=== PATIENT | male | born 1955 | race Caucasian/White ===

== ENCOUNTER 2017-10-10 08:00 | Outpatient (RCR) | payer OTHER, SELFPAY ==
--- NOTE | 2017-07-20 09:12 | HP.PTEVAL_ITS ---
Patient's Visit Information CHEPE THURSTON is a 62 year old M referred to Physical Therapy by Agustin Martin with a diagnosis of R rot cuff repair and biceps repair. Date of Evaluation: 07/20/17 Physical Therapist: Ben Penn, PT, - Visit Plan Frequency: 3x /Week Duration: 2 Months Plan: R rot cuff protocal. 4 weeks of AAROM f/b strengthening of the rot cuff and scapular stab's. CP for pain - Subjective Subjective: DOS: 06/02/17. 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 Pt reports he had to fight with workers comp for several months, even though he had multiple witnesses who saw the injury occur. Pt reports he wore a sling up until last week. Pt reports he has been attempting to stretch his R shoulder out at home, but that is about it for a HEP. Pt reports he is still in a lot of pain at this time. Pt still has sleep diff secondary to pain at this time. Pt is R hand dom. No T or numbness at this time. Pt is currently off of work until 08/23/16. 0/10 pain at rest, 8/10 at worst (while sleeping). Pt notes he has not slept more than 2 hours at a time since the surgery. - Pain R shoulder Pain Intensity (Out of 10): 0 Pain Intensity Range: 8 - Objective Neuro: B UE sensation is WNL to light touch. B bicepital reflex= 1/3. Observation: Incisions fully healed. No obvious deformity. ROM: L shoulder flex = 170, abd= 170, ER= 70, IR WNL; R shoulder flex= 82, abd= 85, ER= 30, IR severely limited. MMT: L shoulder 5/5 throughout. R shoulder 3-/5 on this date - Goals Goal 1:: Decrease R shoulder pain x 50% to aid with sleep Goal Time Frame: 6-8 Weeks Goal 2:: Increase R shoulder ROM flex and abd x 50 degrees to aid with overhead activity Goal Time Frame: 6-8 Weeks Goal 3:: Increase R shoulder strength x 1 grade to aid with IADL's Goal Time Frame: 6-8 Weeks Goal 4:: I with HEP Goal Time Frame: 6-8 Weeks - Rehabilitation Potential Physical Therapy Diagnosis: R shoulder pain, weakness, and limited ROM secondary to R rot cuff and biceps repair Rehabilitation Potential: Good - Anticipated Interventions Patient/Client Instruction: Educate patient on: Condition, Plan of Care For the Purpose of:: To improve self management Therapeutic Exercise to Include: Strength training, Endurance training, Flexibilty training, Passive ROM, Active ROM, Scapular Strength/Stabilization For the Purpose of:: To decrease pain, To increase ROM, To improve muscle performance and motor function Cryotherapy (ice pack, ice massage): Yes For the Purpose of:: To decrease pain Thank you for the opportunity to evaluate your patient. For Medicare and Medicare HMO plans, please review the plan of care and approve it. It will need to be FAXED BACK to us at [phone] for Medicare purposes. Please let me know if there are questions or concerns regarding this plan of care. Physician Signature: Date:
--- NOTE | 2017-12-12 12:42 | HP.PT.NRP ---
HP - Discharge Summary (1) - Patient Information CHEPE THURSTON was seen in my office for initial evaluation on 07/20/17. The following Plan of Care was established for this patient: Initial Frequency: 3x /Week Initial Duration: 2 Months - Anticipated Interventions Patient/Client Instruction: Educate patient on: Condition, Plan of Care For the Purpose of:: To improve self management Therapeutic Exercise to Include: Strength training, Endurance training, Flexibilty training, Passive ROM, Active ROM, Scapular Strength/Stabilization For the Purpose of:: To decrease pain, To increase ROM, To improve muscle performance and motor function Cryotherapy (ice pack, ice massage): Yes For the Purpose of:: To decrease pain This patient was last seen in our office . Pertinent comments regarding their Physical therapy will appear below: Pt was last scheduled on 10/12/17 for PT. Pt cancelled that appointment and has not returned through todays date. Pt is discontinued at this time At this point I will be discontinuing this patient from physical therapy. I would be happy to see this patient again in the future if found appropriate by the physician. Thank you! Ben Penn, PT,
== END 2017-10-10 19:00 | disposition home or self-care (01) ==
LOC: PT 08:00
PROVIDERS: Family Provider Family Medicine; PCP Family Medicine; Visit Provider Orthopaedic Surgery
DX: S46.211D Strain of muscle, fascia and tendon of other parts of biceps, right arm, subsequent encounter (principal); S46.011D Strain of muscle(s) and tendon(s) of the rotator cuff of right shoulder, subsequent encounter
CPT/HCPCS: 97110; 97140; 97161

== ENCOUNTER 2018-02-06 17:00 | Outpatient (RCR) | payer OTHER, SELFPAY ==
--- NOTE | 2018-01-11 08:54 | HP.PTEVAL ---
Patient's Visit Information CHEPE THURSTON is a 62 year old M referred to Physical Therapy by Agustin Martin with a diagnosis of RC and biceps strain.RCR 06/02/18,. Date of Evaluation: 01/11/18 Physical Therapist: Oral Stanley, GHAZALAT, OC - Visit Plan Frequency: 3x /Week Duration: 4-6 Weeks Plan: 3x/week for 6 weeks for ... RC and scap and deltoid and bicep stregnthening with pulleys and dumbbells and weight bearing stabilization and progress to HEP. Also IR ROM. ice if needed. - Subjective Subjective: RCR 06/02/17 and reattach bicep muscle by doctor Bina. 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 Had PT after surgery for 12 weeks finishing up in November. 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 Pt continues to say how long he had to wait for surgery and therapy and ONLY got 12 weeks. Painful at times with lifting inside the joint. Went golfing yesterday, lasted 2-3 holes and then weakness kicks in and it gets tired. Pain is gone today but it still feels fatigued. Working still and is on 10# weight limit. Works at [employer]. 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 Basic ADLs are done but difficulty with lifting heavier objects. Reaching into cupboard is hard. He is R handed. Sleep is OK most of time. Doing TB exercises at home pulling on band daily with blue band. Doesn't feel like he is getting stronger. - Pain R shoulder Pain Intensity (Out of 10): 0 Pain Intensity Range: 0, 3 Comment: lifting. 05/24 after golf. - Objective Posture is forward head and slightly protracted scapula. AROM L shoulder WNL, R shoulder flexion to 150 and abduction to 150, 75 ext rot, IR to PSIS. C/S AROM WFL and without pain. reflexes 2/3 bi and tri. Full elbow AROM. Sensation WNL to gross light touch in UE. Strength thumb ext 5/5 B, wrist flex adn ext 5/5 B, bi 4/5 R and 5/5 L, triceps 4+ R and 5 L, shoulder flexion 4 R and 5 L, anduction 4 R and 5 L, ext rotation 4- R and 5 L, adn IR 4+ R and 5 L. Pain is not a large issue but long lever arm resisted flexion and abduction are slightly uncomfortable and subjectively sore when he gets weak. - Goals Goal 1:: I approp HEP to continue to challenge and strengthen R parker Goal Time Frame: 4-6 Weeks Goal 2:: 5/5 abd and flexion r UE without pain to help lift gallon [place] out of fridge. Goal Time Frame: 4-6 Weeks Goal 3:: Pt to be able to return to full duty at work without limitations. Goal Time Frame: 4-6 Weeks Goal 4:: Pt report a 90% improvement in strength and function in R UE Goal Time Frame: 4-6 Weeks Goal 5:: Plan to compete in [employer]. Goal Time Frame: 6-8 Weeks Goal 6:: Full UE IR to L4 to aid in belt and tucking in shirt. Goal Time Frame: 4-6 Weeks - Rehabilitation Potential Physical Therapy Diagnosis: Weakness after recent strain and surgery of R shoulder. Rehabilitation Potential: Fair - Anticipated Interventions Patient/Client Instruction: Educate patient on: Condition, Plan of Care For the Purpose of:: To improve muscle performance and motor function Therapeutic Exercise to Include: Strength training, Passive ROM, Active ROM, Scapular Strength/Stabilization For the Purpose of:: To improve muscle performance and motor function, To improve ability to perform ADL's, To increase tolerance to activity/condition/position Thank you for the opportunity to evaluate your patient. For Medicare and Medicare HMO plans, please review the plan of care and approve it. It will need to be FAXED BACK to us at [phone] for Medicare purposes. Please let me know if there are questions or concerns regarding this plan of care. Physician Signature: Date:
--- NOTE | 2018-02-17 08:45 | HP.PTDCSUM ---
HP - PT D/C Summary It has been my pleasure to treat CHEPE THURSTON under orders from Agustin Martin, for the diagnosis of RC and biceps strain.RCR 06/02/18, for a total of 10 visit(s). Discharge Date: Please see the following information for a summary of their discharge status. - Subjective Subjective: Pt no showed for today and last 5 visits. - Pain R shoulder Pain Intensity (Out of 10): 0 - Objective Objective/Function: No show for last couple weeks. was doing well prior to that slowly getting stronger. - Goals Goal 1:: I approp HEP to continue to challenge and strengthen R shoudler Goal Progress: initial ex Goal 2:: 5/5 abd and flexion r UE without pain to help lift gallon millk out of fridge. Goal Progress: unable to test Goal 3:: Pt to be able to return to full duty at work without limitations. Goal 4:: Pt report a 90% improvement in strength and function in R UE Goal 5:: Plan to compete in [employer] competition. Goal 6:: Full UE IR to L4 to aid in belt and tucking in shirt. - Plan Plan: D/C due to nonattendance. - D/C Information If there are questions or concerns regarding this patient's physical therapy, please feel free to call me at [phone]. Thank you for the referral of this patient. Sincerely, Oral Stanley, DPT, OC
== END 2018-02-06 19:00 | disposition home or self-care (01) ==
LOC: PT 17:00
PROVIDERS: Visit Provider Orthopaedic Surgery
DX: S46.211D Strain of muscle, fascia and tendon of other parts of biceps, right arm, subsequent encounter (principal); S46.011D Strain of muscle(s) and tendon(s) of the rotator cuff of right shoulder, subsequent encounter
CPT/HCPCS: 97110; 97162; 97530

== ENCOUNTER → 2018-04-11 15:51 | Outpatient (CLI) | payer OTHER, SELFPAY ==
[2018-04-11 16:50] LABS: Absolute Lymphocyte Count 1.52 X10^3/ul (0.83-4.51); Absolute Neutrophil Count 3.2 X10^3/uL (2.0-7.7); Basophil# 0.01 X10^3/uL; Basophil% 0.2 % (0-1); Eosinophil# 0.18 X10^3/uL; Eosinophils% 3.4 % (0-5); Hematocrit 42.5 % (40-54); Hemoglobin 14.6 g/dl (13.0-16.5); Lymphocyte # 1.52 X10^3/ul (4.0); Lymphocyte % 28.3 % (19-41); Mean Corp Hgb Conc 34.4 g/gl (32-36); Mean Corpuscular Hgb 29.9 pg (27.0-32.0); Mean Corpuscular Volume 87.1 fL (80-94); Mean Platelet Vol. 9.2 fl (6.2-12.0); Monocyte# 0.42 X10^3/uL; Monocyte% 7.8 % (0-10); Neutrophil # 3.23 X10^3/uL (2.7-7.7); Neutrophil % 60.1 % (47-70); Platelet Count 240 K/mm3 (150-450); RBC Distribution Width CV 13.1 % (11.6-14.6); RBC Distribution Width SD 41.7 fl (35.1-43.9); Red Blood Count 4.88 M/mm3 (4.6-6.2); White Blood Count 5.4 K/mm3 (4.4-11.0)
[2018-04-11 16:51] LABS: POSITIVE COUNT NO; POSITIVE DIFFERENTIAL NO; POSITIVE MORPHOLOGY NO
[2018-04-11 17:13] LABS: ALB/GLOB Ratio 1.1 RATIO (0.9-2.4); AST(SGOT) 27 U/L (15-37); Alanine Aminotransfer ALT/SGPT 65 U/L (16-61); Albumin, Serum 4.2 g/dL (3.2-5.0); Alkaline Phosphatase 92 U/L (45-117); Anion Gap 12 (5-15); BUN 18 mg/dL (7-18); BUN/Creat Ratio 14.2 RATIO (10-20); Calcium,Total 9.1 mg/dL (8.5-10.1); Chloride 106 mmol/L (98-107); Creatinine, Serum 1.27 mg/dL (0.70-1.30); EST Glomerular Filtration Rate 61 mL/min (>60); Est Glom Filt Rate - Afr Amer 74 mL/min (>60); Globulin 3.8 g/dL (2.2-4.2); Glucose 97 mg/dL (74-106); PSA,Total - Annual Screen 2.69 ng/mL (0.00-4.00); Potassium 4.1 mmol/L (3.5-5.1); Sodium Level 141 mmol/L (136-145); Thyroid Stim Hormone (TSH) 3.24 uIU/mL (0.358-3.74); Uric Acid 8.5 mg/dL (3.5-7.2)
[2018-04-14 11:50] LABS: Hep C Antibodies <0.1 s/co ratio (0.0-0.9)
== END ==
PROVIDERS: Visit Provider Family Medicine Geriatric Medicine
DX: Z00.00 Encounter for general adult medical examination without abnormal findings (principal); Z12.5 Encounter for screening for malignant neoplasm of prostate; Z13.89 Encounter for screening for other disorder; M10.9 Gout, unspecified
CPT/HCPCS: 36415; 80053; 84153; 84443; 84550; 85025; 86803; G0103

== ENCOUNTER → 2018-07-12 13:44 | Outpatient (CLI) | payer OTHER, SELFPAY ==
[2018-07-12 17:11] LABS: Absolute Lymphocyte Count 1.39 X10^3/ul (0.83-4.51); Absolute Neutrophil Count 4.2 X10^3/uL (2.0-7.7); Basophil# 0.01 X10^3/uL; Basophil% 0.2 % (0-1); Eosinophil# 0.14 X10^3/uL; Eosinophils% 2.3 % (0-5); Hematocrit 39.2 % (40-54); Hemoglobin 13.4 g/dl (13.0-16.5); Lymphocyte # 1.39 X10^3/ul (4.0); Lymphocyte % 22.6 % (19-41); Mean Corp Hgb Conc 34.2 g/gl (32-36); Mean Corpuscular Hgb 30.5 pg (27.0-32.0); Mean Corpuscular Volume 89.1 fL (80-94); Mean Platelet Vol. 9.9 fl (6.2-12.0); Monocyte# 0.42 X10^3/uL; Monocyte% 6.8 % (0-10); Neutrophil # 4.17 X10^3/uL (2.7-7.7); Neutrophil % 67.8 % (47-70); Platelet Count 256 K/mm3 (150-450); RBC Distribution Width CV 13.4 % (11.6-14.6); White Blood Count 6.2 K/mm3 (4.4-11.0)
[2018-07-12 17:33] LABS: POSITIVE COUNT NO; POSITIVE DIFFERENTIAL NO; POSITIVE MORPHOLOGY NO
[2018-07-12 18:03] LABS: ALB/GLOB Ratio 1.2 RATIO (0.9-2.4); AST(SGOT) 28 U/L (15-37); Alanine Aminotransfer ALT/SGPT 54 U/L (16-61); Albumin, Serum 4.1 g/dL (3.2-5.0); Alkaline Phosphatase 101 U/L (45-117); Anion Gap 10 (5-15); BUN 12 mg/dL (7-18); BUN/Creat Ratio 9.5 RATIO (10-20); Calcium,Total 9.1 mg/dL (8.5-10.1); Chloride 108 mmol/L (98-107); Creatinine, Serum 1.26 mg/dL (0.70-1.30); EST Glomerular Filtration Rate 62 mL/min (>60); Est Glom Filt Rate - Afr Amer 75 mL/min (>60); Globulin 3.5 g/dL (2.2-4.2); Glucose 101 mg/dL (74-106); Potassium 3.7 mmol/L (3.5-5.1); Protein, Total 7.6 g/dL (6.4-8.2); Sodium Level 145 mmol/L (136-145); Thyroid Stim Hormone (TSH) 3.64 uIU/mL (0.358-3.74); Uric Acid 4.9 mg/dL (3.5-7.2)
--- OUTSIDE RECORDS SUMMARY | 2018-09-06 23:13 | XMS RPT_ITS ---
:1955 Demographics Address [address] [place] [address] Pref[facility] Marital Status Unknown Latter Day Affiliation Unknown Race Ethnic Group Unknown Author Organization OHIP Care Team Providers Name Role Phone TOBIAS CEDENO Attending Unavailable Herber Pandya Primary Care Unavailable TOBIAS CEDENO Attending Unavailable TOBIAS CEDENO Referring Unavailable Primay Care Physicia, No Primary Care Unavailable Vinicio Franco Chi Attending Unavailable Vinicio Franco Chi Attending Unavailable PROBLEMS PROBLEMS DATE TYPE CONDITION / CODE ATTENDING STATUS SOURCE 04/04/2018 Unknown S46.211D - Strain TOBIAS CEDENO Active Turner of muscle, fascia Community and tendon of Hospital other parts of Repository biceps, right arm, subsequent encounter / S46.211D(ICD-10) PROCEDURES PROCEDURES No Procedure Records FoundRESULTS RESULTS CBC W/DIFF, AUTOMATED Collected: 07/12/2018 Status: F Source: [place] 1:48 PM [facility] REPOSITORY TYPE CODE TESTS RESULT OUT OF RANGE REFERENCE UNITS LAB L100.1000 4.4-11.0 K/mm3 Normal WBC 6.2 LAB L100.1200 4.6-6.2 M/mm3 Low RBC 4.40 LAB L100.1300 13.0-16.5 g/dl Normal HGB 13.4 LAB L100.1400 40-54 % Low HCT 39.2 LAB L100.1500 80-94 fL Normal MCV 89.1 LAB L100.1600 27.0-32.0 pg Normal MCH 30.5 LAB L100.1700 32-36 g/gl Normal MCHC 34.2 LAB L100.1810 11.6-14.6 % Normal RDW CV 13.4 LAB L100.1820 35.1-43.9 fl Normal RDW SD 43.0 LAB L100.1900 150-450 K/mm3 Normal PLT 256 LAB L100.2000 6.2-12.0 fl Normal MPV 9.9 LAB L100.2100 47-70 % Normal NEUT% 67.8 LAB L100.2200 19-41 % Normal LY% 22.6 LAB L100.2300 0-10 % Normal MONO% 6.8 LAB L100.2400 0-5 % Normal EO% 2.3 LAB L100.2500 0-1 % Normal BASO% 0.2 LAB L100.2550 0.0-0.9 % Normal IM GRAN % 0.300 Result Comment: IG% - Immature Granulocytes (promyelocytes, myelocytes and metamyelocytes) > 1% indicates that a LEFT SHIFT is Present. LAB L100.2620 2.0-7.7 X10 3/uL Normal Absolute Neut 4.2 LAB L100.2720 0.83-4.51 X10 3/ul Normal Absolute Lymph 1.39 Performed By: #### L100.0100 #### [facility] [address] [place], [address] COMPREHENSIVE METABOLIC Collected: 07/12/2018 Status: F Source: [facility] 1:48 PM [facility] REPOSITORY TYPE CODE TESTS RESULT OUT OF RANGE REFERENCE UNITS LAB L501.0100 74-106 mg/dL Normal GLU 101 Result Comment: Fasting Glucose result from 100 to 125 mg/dL suggests IMPAIRED HOMEOSTASIS per A.D.A. criteria. Please note revised GLUCOSE reference range effective 2017. LAB L501.1000 7-18 mg/dL Normal BUN 12 LAB L501.1100 0.70-1.30 mg/dL Normal CREAT,SERUM 1.26 Result Comment: The validity of the calculated GFR AND GFRAA in patients over 70 years has not been determined. Clinical correlation is essential. LAB L501.1110 >60 mL/min Normal EST GFR 62 Result Comment: Non- GFR Calc LAB L501.1115 >60 mL/min Normal EST GFR - AA 75 Result Comment: GFR Calc LAB L501.1300 10-20 RATIO Low BUN/CRE 9.5 LAB L501.1500 6.4-8.2 g/dL Normal T PROT 7.6 LAB L501.1800 3.2-5.0 g/dL Normal ALB 4.1 LAB L501.1950 2.2-4.2 g/dL Normal GLOB 3.5 LAB L501.2000 0.9-2.4 RATIO Normal A/G 1.2 LAB L501.2200 8.5-10.1 mg/dL Normal CA 9.1 LAB L501.4100 15-37 U/L Normal AST 28 LAB L501.4305 45-117 U/L Normal ALK P 101 LAB L501.4405 16-61 U/L Normal ALT 54 LAB L501.4600 0.20-1.00 mg/dL Normal T BILI 0.80 LAB L501.5300 136-145 mmol/L Normal NA 145 LAB L501.5600 3.5-5.1 mmol/L Normal K 3.7 LAB L501.5900 98-107 mmol/L High CL 108 LAB L501.6100 21.0-32.0 mmol/L Normal CO2 27.0 LAB L501.6200 5-15 Normal GAP 10 Performed By: #### L500.4050, L501.1400, L501.9520 #### [facility] [address] [place], [place], [address] URIC ACID Collected: 07/12/2018 Status: F Source: [place] 1:48 PM [facility] REPOSITORY TYPE CODE TESTS RESULT OUT OF RANGE REFERENCE UNITS LAB L501.1400 3.5-7.2 mg/dL Normal URIC 4.9 Result Comment: The drugs N-Acetylcysteine and Metamizole may falsely depress this assay. Performed By: #### L500.4050, L501.1400, L501.9520 #### [facility] [address] [place], [place], [address] THYROID STIM HORMONE Collected: 07/12/2018 Status: F Source: [place] ([facility]) 1:48 PM [facility] REPOSITORY TYPE CODE TESTS RESULT OUT OF RANGE REFERENCE UNITS LAB L501.9520 0.358-3.74 uIU/mL Normal TSH 3.64 Performed By: #### L500.4050, L501.1400, L501.9520 #### [facility] [address] [facility] [address] [place], [place], [address] CBC W/DIFF, AUTOMATED Collected: 04/11/2018 Status: F Source: [place] 3:52 PM [facility] REPOSITORY TYPE CODE TESTS RESULT OUT OF RANGE REFERENCE UNITS LAB L100.1000 4.4-11.0 K/mm3 Normal WBC 5.4 LAB L100.1200 4.6-6.2 M/mm3 Normal RBC 4.88 LAB L100.1300 13.0-16.5 g/dl Normal HGB 14.6 LAB L100.1400 40-54 % Normal HCT 42.5 LAB L100.1500 80-94 fL Normal MCV 87.1 LAB L100.1600 27.0-32.0 pg Normal MCH 29.9 LAB L100.1700 32-36 g/gl Normal MCHC 34.4 LAB L100.1810 11.6-14.6 % Normal RDW CV 13.1 LAB L100.1820 35.1-43.9 fl Normal RDW SD 41.7 LAB L100.1900 150-450 K/mm3 Normal PLT 240 LAB L100.2000 6.2-12.0 fl Normal MPV 9.2 LAB L100.2100 47-70 % Normal NEUT% 60.1 LAB L100.2200 19-41 % Normal LY% 28.3 LAB L100.2300 0-10 % Normal MONO% 7.8 LAB L100.2400 0-5 % Normal EO% 3.4 LAB L100.2500 0-1 % Normal BASO% 0.2 LAB L100.2550 0.0-0.9 % Normal IM GRAN % 0.200 Result Comment: IG% - Immature Granulocytes (promyelocytes, myelocytes and metamyelocytes) > 1% indicates that a LEFT SHIFT is Present. LAB L100.2620 2.0-7.7 X10 3/uL Normal Absolute Neut 3.2 LAB L100.2720 0.83-4.51 X10 3/ul Normal Absolute Lymph 1.52 Performed By: #### L100.0100 #### [facility] [address] [place], [address] COMPREHENSIVE METABOLIC Collected: 04/11/2018 Status: F [facility] REPOSITORY TYPE CODE TESTS RESULT OUT OF RANGE REFERENCE UNITS LAB L501.0100 74-106 mg/dL Normal GLU 97 Result Comment: Please note revised GLUCOSE reference range effective 2017. LAB L501.1000 7-18 mg/dL Normal BUN 18 LAB L501.1100 0.70-1.30 mg/dL Normal CREAT,SERUM 1.27 Result Comment: The validity of the calculated GFR AND GFRAA in patients over 70 years has not been determined. Clinical correlation is essential. LAB L501.1110 >60 mL/min Normal EST GFR 61 Result Comment: Non- GFR Calc LAB L501.1115 >60 mL/min Normal EST GFR - AA 74 Result Comment: GFR Calc LAB L501.1300 10-20 RATIO Normal BUN/CRE 14.2 LAB L501.1500 6.4-8.2 g/dL T Normal PROT 8.0 LAB L501.1800 3.2-5.0 g/dL Normal ALB 4.2 LAB L501.1950 2.2-4.2 g/dL Normal GLOB 3.8 LAB L501.2000 0.9-2.4 RATIO Normal A/G 1.1 LAB L501.2200 8.5-10.1 mg/dL CA Normal 9.1 LAB L501.4100 15-37 U/L Normal AST 27 LAB L501.4305 45-117 U/L Normal ALK P 92 LAB L501.4405 16-61 U/L High ALT 65 LAB L501.4600 0.20-1.00 mg/dL T Normal BILI 0.70 LAB L501.5300 136-145 mmol/L NA Normal 141 LAB L501.5600 3.5-5.1 mmol/L K Normal 4.1 LAB L501.5900 98-107 mmol/L CL Normal 106 LAB L501.6100 21.0-32.0 mmol/L Normal CO2 23.0 LAB L501.6200 5-15 Normal GAP 12 Performed By: #### L500.4050, L501.1400, L501.9520, L501.9910 #### [facility] [address] [facility] [place], [address] URIC ACID Collected: 04/11/2018 Status: F Source: [place] 3:52 PM [facility] REPOSITORY TYPE CODE TESTS RESULT OUT OF RANGE REFERENCE UNITS LAB L501.1400 3.5-7.2 mg/dL High URIC 8.5 Result Comment: The drugs N-Acetylcysteine and Metamizole may falsely depress this assay. Performed By: #### L500.4050, L501.1400, L501.9520, L501.9910 #### [facility] [address] [facility]. [place], [place], [address] THYROID STIM HORMONE Collected: 04/11/2018 Status: F Source: [place] ([facility]) 3:52 PM [facility] REPOSITORY TYPE CODE TESTS RESULT OUT OF RANGE REFERENCE UNITS LAB L501.9520 0.358-3.74 uIU/mL Normal TSH 3.24 Performed By: #### L500.4050, L501.1400, L501.9520, L501.9910 #### [facility] [address] [facility] [place], [address] PSA,TOTAL - ANNUAL Collected: 04/11/2018 Status: F Source: [place] SCREEN 3:52 PM [facility] REPOSITORY TYPE CODE TESTS RESULT OUT OF RANGE REFERENCE UNITS LAB L501.9910 0.00-4.00 ng/mL Normal PSA,TOT 2.69 SCREEN Result Comment: This test was performed using the TPSA assay method for the Leap chemistry system. Values obtained with different assay methods cannot be used interchangably. When changing PSA assays in the course of monitoring a patient, additional sequential testing should be carried out to confirm baseline values. Performed By: #### L500.4050, L501.1400, L501.9520, L501.9910 #### [facility] [address] [place], [address] HEPATITIS C ANTIBODIES Collected: 04/11/2018 Status: F Source: [place] 3:52 PM [facility] REPOSITORY TYPE CODE TESTS RESULT OUT OF RANGE REFERENCE UNITS LAB L3100.0650 0.0-0.9 s/co ratio Normal HEP C AB <0.1 Result Comment: Negative: < 0.8 Indeterminate: 0.8 - 0.9 Positive: > 0.9 The CDC recommends that a positive HCV antibody result be followed up with a HCV Nucleic Acid Amplification test (502127). Performed at: - [facility] [id number] Managing Consultant Clinical Professor: Ander Browne PhD, Phone: [phone] Performed By: #### L3100.0625 #### [facility] (refer to report for specific site) refer to report for address and phone number PT D/C SUMMARY (1) Observed: 02/17/2018 Status: F Source: [place] 8:46 AM [facility] REPOSITORY [facility] [address] [place] [address]. [address] [place], [place] [address] Fax REHABILITATION SERVICES DISCHARGE SUMMARY MR#: [id number] Acct: [id number] Name: ROLAN THURSTON Rep #: [id number] : 1955 63 From: Oral Stanley DPT, OCS, CSCS Referring DrMakenna: TOBIAS CEDENO Status: REG RCR Insurance: SELF INSURED [facility] OTHER SELF PAY INSURANCE HP - PT D/C Summary It has been my pleasure to treat ROLAN THURSTON under orders from Tobias Cedeno, for the diagnosis of RC and biceps strain.RCR 06/02/18, for a total of 10 visit(s). Discharge Date: Please see the following information for a summary of their discharge status. - Subjective Subjective: Pt no showed for today and last 5 visits. - Pain R shoulder Pain Intensity (Out of 10): 0 - Objective Objective/Function: No show for last couple weeks. was doing well prior to that slowly getting stronger. - Goals Goal 1:: I approp HEP to continue to challenge and strengthen R barbiler Goal Progress: initial ex Goal 2:: 5/5 abd and flexion r UE without pain to help lift ramesh cm out of fridge. Goal Progress: unable to test Goal 3:: Pt to be able to return to full duty at work without limitations. Goal 4:: Pt report a 90% improvement in strength and function in R UE Goal 5:: Plan to compete in [employer] competition. Goal 6:: Full UE IR to L4 to aid in belt and tucking in shirt. - Plan Plan: D/C due to nonattendance. - D/C Information If there are questions or concerns regarding this patient's physical therapy, please feel free to call me at [phone]. Thank you for the referral of this patient. Sincerely, Oral Stanley DPT, OC <Electronically signed by Oral Stanley DPT, LUIZ, CSCS> 02/17/18 0846 CC: No Primary Care Physician; TOBIAS CEDENO EBG Signed INITAL EVALUATION (1) Observed: 01/12/2018 Status: F Source: [place] - PT 6:22 PM [facility] REPOSITORY [facility] [address] [place] [address]. [address] [place] [address] Fax REHABILITATION SERVICES INITIAL EVALUATION MR#: [id number] Acct: [id number] Name: ROLAN THURSTON Rep #: [id number] : 1955 62 From: Oral Stanley DPT, OCS, CSCS Referring Dr.: TOBIAS CEDENO Status: REG RCR Insurance: SELF INSURED [facility] OTHER SELF PAY INSURANCE Patient's Visit Information ROLAN THURSTON is a 62 year old M referred to Physical Therapy by Tobias Cedeno with a diagnosis of RC and biceps strain.RCR 06/02/18,. Date of Evaluation: 01/11/18 Physical Therapist: Oral Stanley DPT, OC - Visit Plan Frequency: 3x /Week Duration: 4-6 Weeks Plan: 3x/week for 6 weeks for ... RC and scap and deltoid and bicep stregnthening with pulleys and dumbbells and weight bearing stabilization and progress to HEP. Also IR ROM. ice if needed. - Subjective Subjective: RCR 06/02/17 and reattach bicep muscle by doctor Bina. 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 Had PT after surgery for 12 weeks finishing up in November. 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 Pt continues to say how long he had to wait for surgery and therapy and ONLY got 12 weeks. Painful at times with lifting inside the joint. Went golfing yesterday, lasted 2-3 holes and then weakness kicks in and it gets tired. Pain is gone today but it still feels fatigued. Working still and is on 10# weight limit. Works at [employer]. 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 Basic ADLs are done but difficulty with lifting heavier objects. Reaching into cupboard is hard. He is R handed. Sleep is OK most of time. Doing TB exercises at home pulling on band daily with blue band. Doesn't feel like he is getting stronger. - Pain R shoulder Pain Intensity (Out of 10): 0 Pain Intensity Range: 0, 3 Comment: lifting. 05/24 after golf. - Objective Posture is forward head and slightly protracted scapula. AROM L shoulder WNL, R shoulder flexion to 150 and abduction to 150, 75 ext rot, IR to PSIS. C/S AROM WFL and without pain. reflexes 2/3 bi and tri. Full elbow AROM. Sensation WNL to gross light touch in UE. Strength thumb ext 5/5 B, wrist flex adn ext 5/5 B, bi 4/5 R and 5/5 L, triceps 4+ R and 5 L, shoulder flexion 4 R and 5 L, anduction 4 R and 5 L, ext rotation 4- R and 5 L, adn IR 4+ R and 5 L. Pain is not a large issue but long lever arm resisted flexion and abduction are slightly uncomfortable and subjectively sore when he gets weak. - Goals Goal 1:: I approp HEP to continue to challenge and strengthen R parker Goal Time Frame: 4-6 Weeks Goal 2:: 5/5 abd and flexion r UE without pain to help lift gallon millk out of fridge. Goal Time Frame: 4-6 Weeks Goal 3:: Pt to be able to return to full duty at work without limitations. Goal Time Frame: 4-6 Weeks Goal 4:: Pt report a 90% improvement in strength and function in R UE Goal Time Frame: 4-6 Weeks Goal 5:: Plan to compete in [employer]. Goal Time Frame: 6-8 Weeks Goal 6:: Full UE IR to L4 to aid in belt and tucking in shirt. Goal Time Frame: 4-6 Weeks - Rehabilitation Potential Physical Therapy Diagnosis: Weakness after recent strain and surgery of R shoulder. Rehabilitation Potential: Fair - Anticipated Interventions Patient/Client Instruction: Educate patient on: Condition, Plan of Care For the Purpose of:: To improve muscle performance and motor function Therapeutic Exercise to Include: Strength training, Passive ROM, Active ROM, Scapular Strength/Stabilization For the Purpose of:: To improve muscle performance and motor function, To improve ability to perform ADL's, To increase tolerance to activity/condition/position Thank you for the opportunity to evaluate your patient. For Medicare and Medicare HMO plans, please review the plan of care and approve it. It will need to be FAXED BACK to us at [phone] for Medicare purposes. Please let me know if there are questions or concerns regarding this plan of care. Physician Signature: Date: <Electronically signed by Oral Stanley DPT, OCS, CSCS> 01/12/18 1822 CC: No Primary Care Physician; TOBIAS CEDENO EBG Signed For Medicare only, by signing this I certify the plan of care. Physicians Signature Date ALLERGIES ALLERGIES No Allergies Records FoundENCOUNTERS ENCOUNTERS ADMIT/DISCHARGE ACCOUNT ADMITTING ENCOUNTER LOCATION SOURCE NUMBER CLASS 07/12/2018 [id number] Ambulatory Logan Logan 6 [facility] ing:POLAB3 Repository 04/11/2018 [id number] Ambulatory Turner Logan 0 [facility] ing:POLAB3 Repository 02/06/2018/ [id number] Ambulatory Turner Turner 8 6 [facility] ing:PT Repository 10/10/2017/ [id number] Ambulatory Turner Turner 8 3 [facility] ing:PT Repository PAYERS PAYERS ENCOUNTER GUARANTOR PAYER SUBSCRIBER SOURCE 07/12/2018 ROLAN Tompkins [id number] 1/2 [facility] [address] [id number] Number: Repository [id number]: 330 [id number] [phone] () Date:[id number] [facility] [id number] [place] [id number]: 07/12/2018 Secondary NOT GIVENUNK Logan Insurance:SELF PAY [facility] Number: Effective Repository Date:2018-07-12 04/11/2018 ROLAN Tompkins [id number] 1/2 [facility] [place] [id number] [id number] Number: Repository [id number]: 330 [id number] [phone] () Date:[id number] [facility] [address], [place] [address]QQ: 04/11/2018 Secondary NOT GIVENUNK Logan Insurance:SELF PAY [facility] Number: Effective Repository Date:2018-04-11 02/06/2018 Rolan Tompkins [id number] 1/2 Insurance:[facility]: [facility] Number: [id number], [place] [id number] Repository [address]Jah: (330) Date: [phone] () [place] [address]YV: 02/06/2018 Secondary NOT GIVENUNK Turner Insurance:SELF PAY [facility] Number: Effective Repository Date:2018-01-05 10/10/2017 Rolan Bautista Primary Rolan Tompkins [id number] 08/16 [facility] Number: [id number], [place] [id number] Repository [address]Rhe: (330) Date: [phone] () [place] [address]CV: 10/10/2017 Secondary NOT GIVENUNK Turner Insurance:SELF PAY [facility] Number: Effective Repository Date:2017-07-18
== END ==
PROVIDERS: Visit Provider Family Medicine Geriatric Medicine
DX: M10.9 Gout, unspecified (principal); R53.83 Other fatigue
CPT/HCPCS: 36415; 80053; 84443; 84550; 85025

== ENCOUNTER → 2018-11-02 14:04 | Outpatient (CLI) | payer OTHER, SELFPAY ==
[2018-11-02 17:10] LABS: Absolute Lymphocyte Count 1.69 X10^3/ul (0.83-4.51); Absolute Neutrophil Count 4.3 X10^3/uL (2.0-7.7); Basophil# 0.02 X10^3/uL; Basophil% 0.3 % (0-1); Eosinophil# 0.12 X10^3/uL; Eosinophils% 1.8 % (0-5); Hematocrit 43.2 % (40-54); Hemoglobin 14.4 g/dl (13.0-16.5); Lymphocyte # 1.69 X10^3/ul (4.0); Mean Corp Hgb Conc 33.3 g/gl (32-36); Mean Corpuscular Hgb 29.9 pg (27.0-32.0); Mean Corpuscular Volume 89.8 fL (80-94); Mean Platelet Vol. 9.8 fl (6.2-12.0); Monocyte# 0.61 X10^3/uL; Neutrophil # 4.28 X10^3/uL (2.7-7.7); Neutrophil % 63.3 % (47-70); Platelet Count 292 K/mm3 (150-450); RBC Distribution Width CV 13.7 % (11.6-14.6); RBC Distribution Width SD 44.4 fl (35.1-43.9); Red Blood Count 4.81 M/mm3 (4.6-6.2); White Blood Count 6.8 K/mm3 (4.4-11.0)
[2018-11-02 17:13] LABS: POSITIVE COUNT NO; POSITIVE DIFFERENTIAL NO; POSITIVE MORPHOLOGY NO
[2018-11-02 17:32] LABS: ALB/GLOB Ratio 1.2 RATIO (0.9-2.4); AST(SGOT) 21 U/L (15-37); Alanine Aminotransfer ALT/SGPT 68 U/L (16-61); Albumin, Serum 4.1 g/dL (3.2-5.0); Alkaline Phosphatase 90 U/L (45-117); Anion Gap 7 (5-15); BUN 20 mg/dL (7-18); BUN/Creat Ratio 16.7 RATIO (10-20); Calcium,Total 9.5 mg/dL (8.5-10.1); Chloride 108 mmol/L (98-107); EST Glomerular Filtration Rate 65 mL/min (>60); Est Glom Filt Rate - Afr Amer 79 mL/min (>60); Globulin 3.5 g/dL (2.2-4.2); Glucose 106 mg/dL (74-106); Potassium 4.8 mmol/L (3.5-5.1); Protein, Total 7.6 g/dL (6.4-8.2); Sodium Level 142 mmol/L (136-145); Thyroid Stim Hormone (TSH) 2.68 uIU/mL (0.358-3.74); Uric Acid 6.3 mg/dL (3.5-7.2)
== END ==
PROVIDERS: Visit Provider Family Medicine Geriatric Medicine
DX: M10.9 Gout, unspecified (principal); R53.83 Other fatigue
CPT/HCPCS: 36415; 80053; 84443; 84550; 85025

== ENCOUNTER → 2019-02-07 10:18 | Outpatient (CLI) | payer OTHER, SELFPAY ==
[2019-02-07 12:23] LABS: Absolute Lymphocyte Count 1.08 X10^3/ul (0.83-4.51); Absolute Neutrophil Count 3.5 X10^3/uL (2.0-7.7); Basophil# 0.01 X10^3/uL; Basophil% 0.2 % (0-1); Eosinophil# 0.12 X10^3/uL; Eosinophils% 2.3 % (0-5); Hemoglobin 14.1 g/dl (13.0-16.5); Lymphocyte # 1.08 X10^3/ul (4.0); Lymphocyte % 21.1 % (19-41); Mean Corp Hgb Conc 35.3 g/gl (32-36); Mean Corpuscular Hgb 30.4 pg (27.0-32.0); Mean Corpuscular Volume 86.2 fL (80-94); Mean Platelet Vol. 9.4 fl (6.2-12.0); Monocyte# 0.37 X10^3/uL; Monocyte% 7.2 % (0-10); Neutrophil # 3.52 X10^3/uL (2.7-7.7); Platelet Count 273 K/mm3 (150-450); RBC Distribution Width CV 12.8 % (11.6-14.6); RBC Distribution Width SD 39.2 fl (35.1-43.9); Red Blood Count 4.64 M/mm3 (4.6-6.2); White Blood Count 5.1 K/mm3 (4.4-11.0)
[2019-02-07 12:34] LABS: POSITIVE COUNT NO; POSITIVE DIFFERENTIAL NO; POSITIVE MORPHOLOGY NO
[2019-02-07 12:41] LABS: ALB/GLOB Ratio 1.1 RATIO (0.9-2.4); AST(SGOT) 22 U/L (15-37); Alanine Aminotransfer ALT/SGPT 47 U/L (16-61); Alkaline Phosphatase 118 U/L (45-117); Anion Gap 11 (5-15); BUN 13 mg/dL (7-18); BUN/Creat Ratio 9.8 RATIO (10-20); Calcium,Total 9.6 mg/dL (8.5-10.1); Chloride 106 mmol/L (98-107); Creatinine, Serum 1.32 mg/dL (0.70-1.30); EST Glomerular Filtration Rate 58 mL/min (>60); Est Glom Filt Rate - Afr Amer 71 mL/min (>60); Globulin 3.6 g/dL (2.2-4.2); Glucose 104 mg/dL (74-106); Potassium 4.2 mmol/L (3.5-5.1); Protein, Total 7.6 g/dL (6.4-8.2); Sodium Level 141 mmol/L (136-145); Thyroid Stim Hormone (TSH) 1.94 uIU/mL (0.358-3.74)
== END ==
PROVIDERS: Visit Provider Family Medicine Geriatric Medicine
DX: M10.9 Gout, unspecified (principal); R53.83 Other fatigue
CPT/HCPCS: 36415; 80053; 84443; 84550; 85025

== ENCOUNTER → 2019-04-12 08:32 | Outpatient (CLI) | payer OTHER, SELFPAY ==
[2019-04-12 12:16] LABS: Absolute Lymphocyte Count 1.23 X10^3/uL (0.83-4.51); Absolute Neutrophil Count 3.3 X10^3/uL (2.0-7.7); Basophil# 0.02 X10^3/uL; Basophil% 0.4 % (0-1); Eosinophil# 0.18 X10^3/uL; Eosinophils% 3.6 % (0-5); Hematocrit 42.6 % (40-54); Hemoglobin 14.2 g/dL (13.0-16.5); Lymphocyte # 1.23 X10^3/ul (4.0); Lymphocyte % 24.4 % (19-41); Mean Corp Hgb Conc 33.3 g/dL (32-36); Mean Corpuscular Hgb 29.5 pg (27.0-32.0); Mean Corpuscular Volume 88.4 fL (80-94); Mean Platelet Vol. 9.4 fl (6.2-12.0); Monocyte# 0.33 X10^3/uL; Monocyte% 6.5 % (0-10); NRBC Flagged by Analyzer 0 % (0-5); Neutrophil # 3.27 X10^3/uL (2.7-7.7); Neutrophil % 64.7 % (47-70); Platelet Count 259 K/mm3 (150-450); RBC Distribution Width CV 12.1 % (11.6-14.6); RBC Distribution Width SD 39.8 fl (35.1-43.9); Red Blood Count 4.82 M/mm3 (4.6-6.2); White Blood Count 5.1 K/mm3 (4.4-11.0)
[2019-04-12 12:35] LABS: ALB/GLOB Ratio 1.2 RATIO (0.9-2.4); AST(SGOT) 20 U/L (15-37); Alanine Aminotransfer ALT/SGPT 39 U/L (16-61); Albumin, Serum 4.3 g/dL (3.2-5.0); Alkaline Phosphatase 96 U/L (45-117); Anion Gap 7 (5-15); BUN 19 mg/dL (7-18); BUN/Creat Ratio 16.1 RATIO (10-20); Calcium,Total 9.3 mg/dL (8.5-10.1); Chloride 107 mmol/L (98-107); Creatinine, Serum 1.18 mg/dL (0.70-1.30); EST Glomerular Filtration Rate 66 mL/min (>60); Est Glom Filt Rate - Afr Amer 80 mL/min (>60); Globulin 3.7 g/dL (2.2-4.2); Glucose 96 mg/dL (74-106); PSA,Total - Annual Screen 2.12 ng/mL (0.00-4.00); Potassium 4.2 mmol/L (3.5-5.1); Sodium Level 141 mmol/L (136-145); Uric Acid 4.8 mg/dL (3.5-7.2)
== END ==
PROVIDERS: Family Provider Family Medicine Geriatric Medicine; PCP Family Medicine Geriatric Medicine; Visit Provider Family Medicine Geriatric Medicine
DX: M10.9 Gout, unspecified (principal); R53.83 Other fatigue; Z12.5 Encounter for screening for malignant neoplasm of prostate
CPT/HCPCS: 36415; 80053; 84153; 84443; 84550; 85025; G0103

== ENCOUNTER → 2019-12-31 09:58 | Outpatient (CLI) | payer OTHER, SELFPAY ==
[2019-12-31 09:35] VITALS: BMI 36.9
[2019-12-31 10:18] LABS: Absolute Lymphocyte Count 1.17 X10^3/uL (0.83-4.51); Basophil# 0.02 X10^3/uL; Basophil% 0.4 % (0-1); Eosinophil# 0.24 X10^3/uL; Eosinophils% 4.9 % (0-5); Hematocrit 41.4 % (40-54); Hemoglobin 14.2 g/dL (13.0-16.5); Lymphocyte # 1.17 X10^3/ul (4.0); Lymphocyte % 24.1 % (19-41); Mean Corp Hgb Conc 34.3 g/dL (32-36); Mean Corpuscular Hgb 30.2 pg (27.0-32.0); Mean Corpuscular Volume 88.1 fL (80-94); Mean Platelet Vol. 9.3 fl (6.2-12.0); Monocyte# 0.39 X10^3/uL; NRBC Flagged by Analyzer 0 % (0-5); Neutrophil # 3.03 X10^3/uL (2.7-7.7); Neutrophil % 62.4 % (47-70); Platelet Count 244 K/mm3 (150-450); RBC Distribution Width CV 12.7 % (11.6-14.6); RBC Distribution Width SD 40.2 fl (35.1-43.9); White Blood Count 4.9 K/mm3 (4.4-11.0)
[2019-12-31 10:41] LABS: ALB/GLOB Ratio 1.2 RATIO (0.9-2.4); AST(SGOT) 19 U/L (15-37); Alanine Aminotransfer ALT/SGPT 42 U/L (16-61); Albumin, Serum 4.2 g/dL (3.2-5.0); Alkaline Phosphatase 87 U/L (45-117); Anion Gap 3 (5-15); BUN 17 mg/dL (7-18); BUN/Creat Ratio 12.4 RATIO (10-20); Calcium,Total 9.5 mg/dL (8.5-10.1); Chloride 106 mmol/L (98-107); Creatinine, Serum 1.37 mg/dL (0.70-1.30); EST Glomerular Filtration Rate 56 mL/min (>60); Est Glom Filt Rate - Afr Amer 68 mL/min (>60); Globulin 3.4 g/dL (2.2-4.2); Glucose 140 mg/dL (74-106); Lipase 82 U/L (73-393); Potassium 3.9 mmol/L (3.5-5.1); Protein, Total 7.6 g/dL (6.4-8.2); Sodium Level 139 mmol/L (136-145)
== END ==
PROVIDERS: Referring Provider Surgery; Visit Provider Surgery
DX: R10.9 Unspecified abdominal pain (principal)
CPT/HCPCS: 36415; 80053; 83690; 85025

== ENCOUNTER 2020-01-12 01:33 | Observation (INO) | payer OTHER, SELFPAY ==
[2019-12-31 09:35] VITALS: BMI 36.9
[2020-01-12] VITALS (12 sets, daily range): BP systolic 107–143; BP diastolic 69–88; PULSE 55–72; RESP 10–16; TEMP 35.9–36.7; O2SAT 93–99; BMI 40.3; BMI 39.3
--- NOTE | 2020-01-12 01:52 | EKG12_ITS ---
Test Reason : CP Blood Pressure : / mmHG Vent. Rate : 067 BPM Atrial Rate : 067 BPM P-R Int : 150 ms QRS Dur : 088 ms QT Int : 390 ms P-R-T Axes : 020 012 005 degrees QTc Int : 412 ms Normal sinus rhythm Normal ECG Confirmed by MALU SHEPARD ([id number]), clinical editor FELTON BUCK ([id number]) on 01/14/2020 11:10:03 AM Referred By: RU Confirmed By:MALU SHEPARD
--- NOTE | 2020-01-12 01:55 | RAD_ITS ---
STUDY: X-RAY CHEST REASON FOR EXAM: Male, 64 years old. CHEST PAIN TECHNIQUE: Single AP portable view of the chest. COMPARISON: None. FINDINGS: There are superimposed monitor leads. There are areas of hyperinflation. There is no focal parenchymal abnormality. There is no demonstrated pleural abnormality. Normal size heart. Normal mediastinum and joy. Normal visualized pulmonary arteries. Normal visualized aortic arch and descending thoracic aorta. There are diffuse degenerative changes of the visualized thoracic spine. Normal visualized external ribs, clavicles, and shoulders. There is no demonstrated abnormality of the visualized soft tissue structures of the upper abdomen. RAD/Chest 1 View (Portable) IMPRESSION: Component of COPD. No pulmonary edema, congestive heart failure or confluent pneumonia. Electronically Signed: Cony Zabala MD at 2:30 EDT , Service support ,
[2020-01-12] MEDS: Aspirin 81 MG TAB.CHEW 324 MG PO (01:57)
[2020-01-12 02:02] LABS: Absolute Lymphocyte Count 1.56 X10^3/uL (0.83-4.51); Absolute Neutrophil Count 2.3 X10^3/uL (2.0-7.7); Basophil# 0.02 X10^3/uL; Basophil% 0.4 % (0-1); Eosinophils% 4.4 % (0-5); Hemoglobin 14.5 g/dL (13.0-16.5); Lymphocyte # 1.56 X10^3/ul (4.0); Lymphocyte % 34.4 % (19-41); Mean Corp Hgb Conc 34.5 g/dL (32-36); Mean Corpuscular Hgb 30.3 pg (27.0-32.0); Mean Corpuscular Volume 87.9 fL (80-94); Mean Platelet Vol. 9.3 fl (6.2-12.0); Monocyte# 0.43 X10^3/uL; Monocyte% 9.5 % (0-10); NRBC Flagged by Analyzer 0 % (0-5); Neutrophil # 2.31 X10^3/uL (2.7-7.7); Neutrophil % 51.1 % (47-70); Platelet Count 275 K/mm3 (150-450); RBC Distribution Width CV 12.9 % (11.6-14.6); RBC Distribution Width SD 41.5 fl (35.1-43.9); Red Blood Count 4.78 M/mm3 (4.6-6.2); White Blood Count 4.5 K/mm3 (4.4-11.0)
[2020-01-12] MEDS: Nitroglycerin SL (ED/IMG/CATH) 0.4 MG TABLET SUBLINGUAL ×3 (02:10→02:22)
--- NOTE | 2020-01-12 02:10 | ED.DCSUM_ITS ---
- ER Visit Summary Date of Service: 01/12/20 Chief Complaint: Chest pain] History of Present Illness: The patient is a 64 M [presents to the emergency department complaint of chest pain that started this evening around 11:30 PM. Patient states that he was at work sitting when he developed onset of pain ret rosternally that sharp stabbing. He denies any radiation of the pain. He had some mild nausea. He denies any shortness of breath. He has had pain in the past but he felt it was related to his ventral hernia for which she saw a surgeon recently. This pain however is different than that and feels like it is coming from behind the sternum. Patient has history of gout and history of depression. His mother of an FL at age 55. Patient states that he had a cardiac cath about 12 years ago that was unremarkable. Patient did travel to [place] in September. He has no history of PE or DVT. He denies recent illness such as fever or cough. He states he had bronchitis about 4 5 weeks ago.] Physical Examination: [HEENT-PERRLA, EOMI. Cranial nerves II through XII aaron ssly intact. TMs clear. Mucous membranes moist. No adenopathy. Cardiovascular-regular rate and rhythm without murmur or ectopy Lungs-clear to auscultation, chest wall stable without crepitus or subcu emphysema Abdomen-normoactive bowel sounds, soft, nontender, no rebound or rigidity, no peritoneal signs. Extremities-intact ?4, normal range of motion, normal pulses, atraumatic] Test Results: [EKG obtained arrival shows sinus rhythm with a ventricular rate of 67 bpm with no acute segment changes.] CBC with it was normal. Chemistries unremarkable. Lipase was normal. AST was slightly elevated at 70. Troponin was less than 0.015. D-dimer was normal at 0.38. Chest x-ray showed some hyperinflation and some features of COPD. Emergency Department Course and Treatment: [IV line established on arrival. Patient placed on radio intelligence operator. Patient was given 4 baby aspirin. Patient was given sublingual nitroglycerin x3 and his chest pain eventually resolved.] Treatment Plan: [Admit] Disposition: [Admit] Impression: [Chest pain-rule out acute coronary syndrome] This note was generated with [employer] software. It may contain incorrect words, spelling, and punctuation that were not noted in review of the chart prior to signing ED Disposition - Plan for ED Patient: Referrals: Care Physician,No Primary [Primary Care Provider] -
[2020-01-12] MEDS: 0.9% Normal Saline 1,000 ML 150 ML IV (02:13)
[2020-01-12 02:20] LABS: Anion Gap 7 (5-15); BUN 24 mg/dL (7-18); BUN/Creat Ratio 18.5 RATIO (10-20); Calcium,Total 9.2 mg/dL (8.5-10.1); Chloride 105 mmol/L (98-107); EST Glomerular Filtration Rate 59 mL/min (>60); Est Glom Filt Rate - Afr Amer 72 mL/min (>60); Estimated Creatinine Clearance 58.92 ml/min; Glucose 118 mg/dL (74-106); Lipase 95 U/L (73-393); Potassium 3.9 mmol/L (3.5-5.1); Sodium Level 140 mmol/L (136-145)
[2020-01-12 02:21] LABS: AST(SGOT) 70 U/L (15-37); Alanine Aminotransfer ALT/SGPT 54 U/L (16-61); Albumin, Serum 4.1 g/dL (3.2-5.0); Alkaline Phosphatase 87 U/L (45-117); Bilirubin, Direct < 0.05 mg/dL (0.00-0.30); Globulin 3.6 g/dL (2.2-4.2); Protein, Total 7.7 g/dL (6.4-8.2)
[2020-01-12 02:31] LABS: D-Dimer Quantitative (DVT/PE) 0.38 FEU/ug/m (0.27-0.49)
--- NOTE | 2020-01-12 03:15 | PCM.HP.STD ---
Problem List (1) Atypical chest pain Status: Acute (2) Diastasis recti Status: Chronic (3) Umbilical hernia without obstruction and without gangrene Status: Chronic History of Present Illness Date of Admission: 01/12/20 Chief Complaint: Chest pain The patient is a 64 year old M with no significant past medical history presented to the emergency room because of chest pain. 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 He did mention that he had upper abdominal pain which was attributed to ventral hernia and diastases of recti for which he sought Dr. May recently. But patient did mention that the pain is more higher and it is retrosternal at this time. He denied associated shortness of breath, dizziness, sweating, syncope or presyncope. In the emergency department, his vital signs were stable. His routine blood work was unremarkable. His EKG revealed normal sinus rhythm, normal ME interval, normal QRS, normal QTC, no acute segment changes. Troponin was negative. Chest x-ray showed no acute findings. LFT and lipase were unremarkable. He is being admitted for chest pain for evaluation. Past Medical History Past Medical History (Chronic Problems): Chronic Problems (Last Updated 12/31/19 @ 09:34 by Christa Mccormack) Diastasis recti (Chronic) Umbilical hernia without obstruction and without gangrene (Chronic) Medical History: Medical History (Last Updated 12/31/19 @ 09:34 by Christa Mccormack) Umbilical hernia without obstruction and without gangrene (Chronic) K42.9 Depression F32.9 Gout M10.9 Allergies No Known Allergies Allergy (Verified 01/12/20 01:42) Home Medications: Ambulatory Orders Medication Instructions Recorded NK 12/31/19 Surgical History: Surgical History (Last Reviewed 01/12/20 @ 03:[address] Larry Gentile MD) History of arthroplasty of left shoulder Z96.612 History of arthroplasty of right shoulder Z96.611 History of arthroscopy of right knee Z98.890 History of left elbow replacement Z96.622 History of mandibular surgery Z98.890 History of surgery on wrist Z98.890 Psychiatric History: No pertinent psych hx Lives: Spouse/ Significant Other Smoking Status: Never smoker Alcohol: None Drugs: None - *Family History Maternal Family History: Family History (Last Reviewed 01/12/20 @ 03:[address] Larry Gentile MD) Mother Heart disease Father Cancer History Items: Heart Disease - Mother at age 55 because of heart disease and congestive heart failure., - Paternal Family History: Family History (Last Reviewed 01/12/20 @ 03:[address] Larry Gentile MD) Mother Heart disease Father Cancer History Items: Cancer Review of Systems Constitutional: Denies: Anorexia, Chills, Fever, Weakness Eyes: Denies: Blurred vision, Double vision, Drainage, Redness HEENT: Denies: Difficulty Hearing, Ear Pain, Eye Pain, Nasal Congestion, Sore Throat Cardiovascular: Reports: Chest Pain. Denies: Chest Tightness, Edema, Heaviness, Light Headedness, Palpitations, Syncope Respiratory: Denies: Cough, Pleuritic Pain, Shortness of Breath, Sputum production, Wheezing Gastrointestinal: Reports: Abdominal Pain. Denies: Constipation, Diarrhea, Nausea, Vomiting Genitourinary: Denies: Dysuria, Frequency, Hematuria Musculoskeletal: Denies: Arm Pain, Back Pain, Foot Pain Skin: Denies: Dryness, Rash Neurological: Denies: Balance problems, Double vision, Change in Speech, Slurred speech, Confusion, Headaches, Incoordination, Numbness, Tingling Psychiatric: Denies: Anxiety, Depression Endocrine: Denies: Change in Body Habitus, Polydipsia, Polyuria VTE Information - Inpt Only VTE Present on Admission: No VTE Mechan Device Prophylaxis: None VTE Pharm Prophylaxis ordered?: Yes Patient Problems: Active and Suspected Problems (Last Updated 12/31/19 @ 09:34 by Christa Mccormack) Atypical chest pain (Acute) - Physical Exam Vitals/I&O's: Vital Signs Temp Pulse Resp BP Pulse Ox 96.6 F L 64 10 L 116/69 96 01/12/20 01:34 01/12/20 02:38 01/12/20 02:38 01/12/20 02:22 01/12/20 02:38 Oxygen Delivery Method Room Air Weight: 273 lb 2.444 oz Body Mass Index (BMI) 40.3 General: Alert, Oriented x3, Cooperative, No apparent distress HEENT: Atraumatic, PERRLA, EOMI, Normocephalic Oral: Moist Mucosa, No Gingival or Mucosal Lesions/ Ulcerations Neck: Supple, No JVD, Negative Carotid Bruits, Trachea Midline, Thyroid Normal Size and Texture Lungs: Clear to auscultation, Normal air movement, No rhonchi, No wheeze, No rales Cardiovascular: Regular rate, Regular Rhythm, Normal S1, Normal S2, PMI Normal Abdomen: Bowel Sounds Present, Soft, Non Tender, Non-Distended, Obese Extremities: No clubbing, No cyanosis, No edema Skin: No rashes, No breakdown Lymphatic: No Cervical, Supraclavicular, or Inguinal Adenopathy Neurological: Cranial nerves II-XII grossly intact, Motor Exam 5/5 strength throughout Psych/Mental Status: Normal Affect, Appropriate, Alert and oriented to time, place, person, mood and affect Laboratory Results 01/12/20 01:50: Total Bilirubin 0.80, Direct Bilirubin < 0.05, AST 70 H, ALT 54, Alkaline Phosphatase 87, Total Protein 7.7, Albumin 4.1, Globulin 3.6 01/12/20 01:50: WBC 4.5, RBC 4.78, Hgb 14.5, Hct 42.0, MCV 87.9, MCH 30.3, MCHC 34.5, RDW Std Deviation 41.5, RDW Coeff of [place]verto 12.9, Plt Count 275, MPV 9.3, Immature Gran % (Auto) 0.200, Neut % (Auto) 51.1, Lymph % (Auto) 34.4, [place] % (Auto) 9.5, Eos % (Auto) 4.4, Baso % (Auto) 0.4, Absolute Neuts (auto) 2.3, Absolute Lymphs (auto) 1.56, Nucleated RBC % 0 01/12/20 01:50: D-Dimer Quant (PE/DVT) Cancelled 01/12/20 01:50: Sodium 140, Potassium 3.9, Chloride 105, Carbon Dioxide 28.0, Anion Gap 7, BUN 24 H, Creatinine 1.30, Estim Creat Clear Calc 58.92, Est GFR (MDRD) Af Amer 72, Est GFR (MDRD) Non-Af 59 L, BUN/Creatinine Ratio 18.5, Glucose 118 H, Calcium 9.2, Troponin I < 0.015, Lipase 95 01/12/20 02:13: D-Dimer Quant (PE/DVT) 0.38 Clinical Impression(s) from Imaging Studies Chest X-Ray 01/12/20 01:55 IMPRESSION: Component of COPD. No pulmonary edema, congestive heart failure or confluent pneumonia. Electronically Signed: Cony Zabala MD at 2:30 EDT , Service support , Current Medications Sodium Chloride () 1,000 mls @ 150 mls/hr IV .[id number] LASHAE Last Admin: 01/12/20 02:13 Dose: 150 mls/hr Documented by: Assessment/Plan All Active Problems (Last Updated 12/31/19 @ 09:34 by Christa Mccormack) Atypical chest pain (Acute) This is a 64 years old male patient presented to the emergency room because of chest pain and he is being admitted for evaluation. #1 chest pain: Seemed to be atypical. Risk factors are age, obesity and family history of premature CAD. Mother at age 55 because of heart attack and congestive heart failure. Patient did have chronic upper abdominal pain and he was diagnosed with umbilical hernia and diastases recti by Dr. Horace May but today, patient stated that the pain is higher up and more towards the abdomen. He is scheduled to have CT scan abdomen and pelvis as outpatient. Initial EKG and troponin I were unremarkable. Chest x-ray showed no acute findings. Plan: Admit to PCU observation, cardiac monitoring, serial cardiac enzymes, nitroglycerin PRN for pain, start baby aspirin, lipid profile, trial of Mylanta and Pepcid twice daily, nuclear stress test this morning if cardiac enzymes are negative, gentle IV fluids for hydration. #2 upper abdominal pain/recent diagnosis of umbilical hernia and diastases recti: Recommend follow-up with Dr. Horace May as outpatient, CT scan abdomen pelvis scheduled as outpatient. LFT and lipase were normal. #3 DVT prophylaxis: Subcu Lovenox. This note was generated with [employer] software. It may contain incorrect words, spelling, and punctuation that were not noted in checking the note before signing. OBSV E&M: 25213 Initial observation care L2
--- NOTE | 2020-01-12 03:43 | EKG12_ITS ---
Test Reason : CP ADMISSION Blood Pressure : / mmHG Vent. Rate : 052 BPM Atrial Rate : 052 BPM P-R Int : 146 ms QRS Dur : 086 ms QT Int : 422 ms P-R-T Axes : 055 025 012 degrees QTc Int : 392 ms Sinus bradycardia Otherwise normal ECG When compared with ECG of 12-JAN-2020 01:36, MANUAL COMPARISON REQUIRED, DATA IS UNCONFIRMED Confirmed by NANCY CAAL, MELIDA ([id number]), manager editorial SAVANNA SMILEY ([id number]) on 01/15/2020 1:49:40 PM Referred By: SAMY Confirmed By:MELIDA CRUZ MD
[2020-01-12] MEDS: 0.9% Normal Saline 1,000 ML 75 ML IV (04:15)
[2020-01-12] MEDS: 0.9% Saline Lock 10 ML Syringe IV (06:28)
[2020-01-12] MEDS: Aspirin 81 MG TAB.CHEW PO (06:29)
--- NOTE | 2020-01-12 07:01 | STEWCON_ITS ---
Reason For Study: CHEST PAIN Stress Results Protocol: Jamel Protocol WITH DEFINITY Maximum Predicted HR: 158 bpm Target HR: 134 bpm % Maximum Predicted HR: 86 % DurationHeart Rate Stage (mm:ss) (bpm) BP Comment BASELINE 60 132/785 CC TOTAL FOR TEST STAGE 1 3:00 96 140/80 STAGE 2 3:00 115 170/82 STAGE 3 1:31 136 / RECOVERY 82 130/80 Stress Duration: 7:31 mm:ss Maximum Stress HR: 136 bpm Baseline Echocardiogram Findings The estimated ejection fraction is 65 %. Stress Echo Wall motion Data Resting WM Intermediate WM Stress WM Resting Wall Motion Wall Motion Stress No regional wall motion No regional wall motion abnormalities noted. abnormalities noted. EKG Data The baseline ECG displays normal sinus rhythm. The patient exercised according to the regular Jamel protocol for a total duration of 8:31. The maximum heart rate attained was 137 beats per minute. This was 86% of maximum predicted heart rate. The patient exercised into stage 3 of the Jamel protocol. During stress, there were no ST or T wave changes noted to suggest ischemia. No clinical angina was noted. Interpretation Summary The estimated ejection fraction is 65 %. Normal, adequate, treadmill echocardiogram. Negative for ischemia by EKG and echocardiographic criteria. No anginal symptoms noted. No arrhythmias noted. Test terminated the attainment target heart rate and right knee discomfort. Final LVEF is 75%. Decrease sensitivity due to poor echo windows requiring Definity agent. No complications. The study was technically difficult. Contrast injection was performed. Ordering Physician: Larry Gentile Performed By: Cassy Padron, OSKAR, RVT
[2020-01-12 07:04] LABS: Cholesterol 229 mg/dL (200); High Density Lipoprotein 38 mg/dL; Triglycerides 176 mg/dL; Very Low Density Lipoprotein 35 mg/dL (5-40)
--- NOTE | 2020-01-12 09:54 | DCINST_ITS ---
- Discharge Diagnoses Current Active Problems: Current Active and Chronic Problems (Last Updated 01/12/20 @ 03:[address] Larry Gentile MD) Atypical chest pain (Acute) Diastasis recti (Chronic) You will use the following diet at home:: Cardiac Your food should be the consistency of: Regular Your liquids should be the consistency of: Regular/Thin Discharge Activity: Return to Normal Activity Allergies/Adverse Reactions: Allergies No Known Allergies Allergy (Verified 01/12/20 01:42) Medications to take at Discharge Acetaminophen [Tylenol Tablet] 650 mg PO Q6H PRN PRN tab 01/12/20 Primary Care Physician: Care Physician,No Primary [Primary Care Provider] - Please follow up with your Primary Care Physician in: 1-2 weeks Test Results: Test results from this visit will be discussed in further detail at your follow- up appointment, if applicable. Please Follow Up With: Horace May MD When: as directed Proposed Discharge Date: 01/12/20
--- NOTE | 2020-01-12 15:37 | PCM.DC.SUM ---
<Van Alberto - Last Filed: 01/12/20 15:37> Discharge Date and Diagnosis Date of Admission: 01/12/20 Date of Discharge: 01/12/20 - Primary Discharge Diagnosis Acute Problems: Chest pain - musculoskeletal Diastesis recti Umbilical hernia Obesity - Secondary Discharge Diagnosis Chronic Problems: Chronic Problems (Last Updated 01/12/20 @ 03:[address] Larry Gentile MD) Diastasis recti (Chronic) Umbilical hernia without obstruction and without gangrene (Chronic) Hospital Course and Treatment Imaging Results: 01/12/20 07:01 Stress Test Echo W/Contrast [ECHO] Routine Interpretation Summary The estimated ejection fraction is 65 %. Normal, adequate, treadmill echocardiogram. Negative for ischemia by EKG and echocardiographic criteria. No anginal symptoms noted. No arrhythmias noted. Test terminated the attainment target heart rate and right knee discomfort. Final LVEF is 75%. Decrease sensitivity due to poor echo windows requiring Definity agent. No complications. The study was technically difficult. Contrast injection was performed. RAD/Chest 1 View (Portable) IMPRESSION: Component of COPD. No pulmonary edema, congestive heart failure or confluent pneumonia. Operations: None Procedures: Stress test Summary of Care Provided: Hospital Course: The patient is a 64 year old M with pmhx as above who presented to the ER with c/o chest pain. He described this as a retrosternal pain started when he was sitting, 4-8/10 in severity, with no radiation or aggravating or alleviating factors. He reported that he had actually had similar pains for several years and had in the past had relief with icing the area on his chest. Also of note he is currently being evaluated by Dr. May (gen surg) for umbilical hernia. He had negative EKG, negative CXR, and negative troponin. He was admitted for chest pain work up. He had no events on tele. troponin was neg x 3. Stress test the following morning was negative. He was felt to have musculoskeletal pain and was discharged home in stable condition. He should follow up with his PCP in 1-2 weeks and with his surgeon regarding his hernia as directed. This patient was seen by Van Alberto PA-C under the supervision of Dr. Aguilar. [] - Physical Exam Vitals/I&O's: Vital Signs Temp Pulse Resp BP Pulse Ox 97.9 F 60 16 130/71 H 99 01/12/20 10:20 01/12/20 10:20 01/12/20 10:20 01/12/20 10:20 01/12/20 10:20 Oxygen Delivery Method Room Air Weight: 266 lb 5.094 oz Body Mass Index (BMI) 39.3 Intake and Output for Last 24 Hours 01/10/20 01/11/20 01/12/20 23:59 23:59 23:59 Intake Total 502.5 / 502.5 Balance 502.5 / 502.5 General: Alert, Oriented x3, Cooperative HEENT: Atraumatic, PERRLA, EOMI, Normocephalic Neck: Supple, No JVD, Negative Carotid Bruits Lungs: Clear to auscultation, Normal air movement Cardiovascular: Regular rate, No murmurs Abdomen: Bowel Sounds Present, Soft, Non Tender Extremities: No edema, Capillary Refill Less than 3 Seconds Skin: No rashes, No breakdown Musculoskeletal: No Tenderness to Palpation of Joints or Extremities Neurological: Cranial nerves II-XII grossly intact Psych/Mental Status: Normal Affect, Appropriate, Alert and oriented to time, place, person, mood and affect Laboratory Results 01/12/20 01:50: Total Bilirubin 0.80, Direct Bilirubin < 0.05, AST 70 H, ALT 54, Alkaline Phosphatase 87, Total Protein 7.7, Albumin 4.1, Globulin 3.6 01/12/20 01:50: WBC 4.5, RBC 4.78, Hgb 14.5, Hct 42.0, MCV 87.9, MCH 30.3, MCHC 34.5, RDW Std Deviation 41.5, RDW Coeff of [place]ver[place] 12.9, Plt Count 275, MPV 9.3, Immature Gran % (Auto) 0.200, Neut % (Auto) 51.1, Lymph % (Auto) 34.4, [place] % (Auto) 9.5, Eos % (Auto) 4.4, Baso % (Auto) 0.4, Absolute Neuts (auto) 2.3, Absolute Lymphs (auto) 1.56, Nucleated RBC % 0 01/12/20 01:50: D-Dimer Quant (PE/DVT) Cancelled 01/12/20 01:50: Sodium 140, Potassium 3.9, Chloride 105, Carbon Dioxide 28.0, Anion Gap 7, BUN 24 H, Creatinine 1.30, Estim Creat Clear Calc 58.92, Est GFR (MDRD) Af Amer 72, Est GFR (MDRD) Non-Af 59 L, BUN/Creatinine Ratio 18.5, Glucose 118 H, Calcium 9.2, Troponin I < 0.015, Lipase 95 01/12/20 02:13: D-Dimer Quant (PE/DVT) 0.38 01/12/20 05:07: Triglycerides 176, Cholesterol 229 H, LDL Cholesterol 156 H, VLDL Cholesterol 35, HDL Cholesterol 38 L 01/12/20 05:07: Troponin I < 0.015 01/12/20 08:50: Troponin I < 0.015 Discharge Diet: Low fat/ Low Cholesterol, 2000 mg Sodium Diet Discharge Activity: Return to Normal Activity Home Medications: Medications to take at Discharge Acetaminophen [Tylenol Tablet] 650 mg PO Q6H PRN PRN tab 01/12/20 Primary Care Physician: Care Physician,No Primary [Primary Care Provider] - Please follow up with your Primary Care Physician in: 1-2 weeks Please Follow Up With: Horace May MD When: as directed Disposition: Home Minutes spent on discharge:: 35 Patient Condition:: Stable Medical Necessity - Tobacco Use Smoking Status: Never smoker Meaningful Use Info Meaningful Use Diagnoses (Choose all that apply): None applicable <Robinson Aguilar - Last Filed: 01/12/20 16:01> Discharge Date and Diagnosis - Secondary Discharge Diagnosis Chronic Problems: Chronic Problems (Last Updated 01/12/20 @ 03:[address] Larry Gentile MD) Diastasis recti (Chronic) Umbilical hernia without obstruction and without gangrene (Chronic) Hospital Course and Treatment Imaging Results: 01/12/20 07:01 Stress Test Echo W/Contrast [ECHO] Routine Summary of Care Provided: The patient is a 64 year old M [] - Physical Exam Vitals/I&O's: Vital Signs Temp Pulse Resp BP Pulse Ox 97.9 F 60 16 130/71 H 99 01/12/20 10:20 01/12/20 10:20 01/12/20 10:20 01/12/20 10:20 01/12/20 10:20 Oxygen Delivery Method Room Air Weight: 266 lb 5.094 oz Body Mass Index (BMI) 39.3 Intake and Output for Last 24 Hours 01/10/20 01/11/20 01/12/20 23:59 23:59 23:59 Intake Total 502.5 / 502.5 Balance 502.5 / 502.5 Laboratory Results 01/12/20 01:50: Total Bilirubin 0.80, Direct Bilirubin < 0.05, AST 70 H, ALT 54, Alkaline Phosphatase 87, Total Protein 7.7, Albumin 4.1, Globulin 3.6 01/12/20 01:50: WBC 4.5, RBC 4.78, Hgb 14.5, Hct 42.0, MCV 87.9, MCH 30.3, MCHC 34.5, RDW Std Deviation 41.5, RDW Coeff of [place]ver[place] 12.9, Plt Count 275, MPV 9.3, Immature Gran % (Auto) 0.200, Neut % (Auto) 51.1, Lymph % (Auto) 34.4, [place] % (Auto) 9.5, Eos % (Auto) 4.4, Baso % (Auto) 0.4, Absolute Neuts (auto) 2.3, Absolute Lymphs (auto) 1.56, Nucleated RBC % 0 01/12/20 01:50: D-Dimer Quant (PE/DVT) Cancelled 01/12/20 01:50: Sodium 140, Potassium 3.9, Chloride 105, Carbon Dioxide 28.0, Anion Gap 7, BUN 24 H, Creatinine 1.30, Estim Creat Clear Calc 58.92, Est GFR (MDRD) Af Amer 72, Est GFR (MDRD) Non-Af 59 L, BUN/Creatinine Ratio 18.5, Glucose 118 H, Calcium 9.2, Troponin I < 0.015, Lipase 95 01/12/20 02:13: D-Dimer Quant (PE/DVT) 0.38 01/12/20 05:07: Triglycerides 176, Cholesterol 229 H, LDL Cholesterol 156 H, VLDL Cholesterol 35, HDL Cholesterol 38 L 01/12/20 05:07: Troponin I < 0.015 01/12/20 08:50: Troponin I < 0.015 Addendum: Dr. Aguilar I personally examined the patient and reviewed the chart. I agree with the above. 64-year-old male with morbid obesity presents with chest pain is atypical in presentation. He has been having this chest pain now for several months and he presented because it moved from his upper abdomen to his sternum. Troponins were negative, his EKG was nonischemic. He had a stress echo this morning which was unremarkable. He was discharged home with outpatient follow-up as well as a discussion in terms of lifestyle modifications for his obesity. OBSV E&M: [id number] Observation care discharge
== END 2020-01-12 09:54 | disposition home or self-care (01) ==
LOC: ED 02:25 → PCU 04:23
PROVIDERS: Admitting Provider Hospitalist; Emergency Provider Emergency Medicine; Visit Provider Family Medicine
DX: R07.89 Other chest pain (principal); E66.9 Obesity, unspecified; Z68.39 Body mass index [BMI] 39.0-39.9, adult; M62.08 Separation of muscle (nontraumatic), other site; R11.0 Nausea; K43.9 Ventral hernia without obstruction or gangrene; Z82.49 Family history of ischemic heart disease and other diseases of the circulatory system
CPT/HCPCS: 36415; 71045; 80048; 80061; 80076; 83690; 84484; 85025; 85379; 93005; 93017; 93350; 96360; 96361; 99218; 99285; J7030; Q9957; A4216; C8928; G0378

== ENCOUNTER → 2020-01-17 08:13 | Outpatient (CLI) | payer OTHER, SELFPAY ==
[2019-12-31 09:35] VITALS: BMI 36.9
[2020-01-12 03:39] VITALS: BMI 39.3
--- NOTE | 2020-01-17 08:14 | CT_ITS ---
STUDY: CT ABDOMEN AND PELVIS WITH CONTRAST REASON FOR EXAM: Male, 64 years old. MID STERNAL PAIN/EPIGASTRIC PAIN RADIATION DOSAGE (If Supplied By Facility): CTDIvol = ( 21.75 ) mGy, DLP = ( 1145.81 ) mGycm TECHNIQUE: Transaxial images were obtained from the dome of the diaphragm to the symphysis pubis with oral contrast. Oral and amp; IV Readi-CAT and amp; 100mL Isovue-300 was administered. Sagittal and coronal images were reconstructed. Individualized dose optimization techniques were used for this CT. COMPARISON: None. FINDINGS: The visualized lung bases are unremarkable. The visualized portions of the heart are within normal limits. There is decreased attenuation of the liver consistent with steatosis. Normal gallbladder and extrahepatic biliary system. Normal spleen. Normal pancreas. Normal bilateral adrenal glands. Normal right kidney. Normal left kidney. Normal visualized stomach. Normal small intestine. Normal colon. The appendix is visualized and appears normal. There is scattered atherosclerotic calcification of the abdominal aorta, without a demonstrated aneurysm. Normal inferior vena cava. Normal retroperitoneum. Normal urinary bladder. There is enlargement of the prostate gland. It measures 5.1 cm x 6 cm. There is a small umbilical hernia containing fat. Small right inguinal hernia containing fat. Normal osseous structures. CT/Abdomen/Pelvis WITH Contrast IMPRESSION: Diffuse fatty infiltration of the liver. Electronically Signed: Akash Roa, at 9:26 EDT , Service support ,
== END ==
PROVIDERS: Referring Provider Surgery; Visit Provider Surgery
DX: R10.9 Unspecified abdominal pain (principal)
CPT/HCPCS: 74177; Q9967; A4216

== ENCOUNTER → 2020-10-17 09:04 | Outpatient (CLI) | payer SELFPAY ==
[2020-01-12 03:39] VITALS: BMI 39.3
[2020-10-17 10:49] LABS: ALB/GLOB Ratio 1.1 RATIO (0.9-2.4); AST(SGOT) 25 U/L (15-37); Alanine Aminotransfer ALT/SGPT 47 U/L (16-61); Albumin, Serum 3.7 g/dL (3.2-5.0); Alkaline Phosphatase 115 U/L (45-117); Anion Gap 5 (5-15); BUN 12 mg/dL (7-18); BUN/Creat Ratio 10.5 RATIO (10-20); Calcium,Total 9.2 mg/dL (8.5-10.1); Chloride 108 mmol/L (98-107); Creatinine, Serum 1.14 mg/dL (0.70-1.30); EST Glomerular Filtration Rate 69 mL/min (>60); Est Glom Filt Rate - Afr Amer 83 mL/min (>60); Globulin 3.5 g/dL (2.2-4.2); Glucose 115 mg/dL (74-106); Potassium 3.9 mmol/L (3.5-5.1); Protein, Total 7.2 g/dL (6.4-8.2); Sodium Level 141 mmol/L (136-145)
== END ==
DX: N18.31 Chronic kidney disease, stage 3a (principal)
CPT/HCPCS: 36415; 80053

== ENCOUNTER → 2023-02-10 | Outpatient (CLI) | payer MEDICARE, BC, SELFPAY ==
[2023-02-10 12:23] LABS: Absolute Lymphocyte Count 1.05 X10^3/uL (0.83-4.51); Absolute Neutrophil Count 2.5 X10^3/uL (2.0-7.7); Basophil# 0.02 X10^3/uL; Basophil% 0.5 % (0-1); Eosinophil# 0.26 X10^3/uL; Eosinophils% 6.2 % (0-5); Hematocrit 42.9 % (40-54); Hemoglobin 14.7 g/dL (13.0-16.5); Lymphocyte # 1.05 X10^3/ul (0.83-4.51); Lymphocyte % 25.2 % (19-41); Mean Corp Hgb Conc 34.3 g/dL (32-36); Mean Corpuscular Hgb 30.2 pg (27.0-32.0); Mean Corpuscular Volume 88.1 fL (80-94); Mean Platelet Vol. 9.5 fl (6.2-12.0); Monocyte# 0.37 X10^3/uL; Monocyte% 8.9 % (0-10); NRBC Flagged by Analyzer 0 % (0-5); Neutrophil # 2.45 X10^3/uL (2.7-7.7); Neutrophil % 58.7 % (47-70); Platelet Count 262 K/mm3 (150-450); RBC Distribution Width CV 12.6 % (11.6-14.6); RBC Distribution Width SD 40.2 fl (35.1-43.9); Red Blood Count 4.87 M/mm3 (4.6-6.2); White Blood Count 4.2 K/mm3 (4.4-11.0)
[2023-02-10 12:58] LABS: AST(SGOT) 21 U/L (15-37); Alanine Aminotransfer ALT/SGPT 43 U/L (16-61); Albumin, Serum 3.9 g/dL (3.2-5.0); Alkaline Phosphatase 121 U/L (45-117); Anion Gap 7 (5-15); BUN 15 mg/dL (7-18); BUN/Creat Ratio 13.2 RATIO (10-20); Calcium,Total 9.3 mg/dL (8.5-10.1); Chloride 107 mmol/L (98-107); Cholesterol 238 mg/dL (200); Creatinine, Serum 1.14 mg/dL (0.70-1.30); EST Glomerular Filtration Rate 68 mL/min (>60); Est Glom Filt Rate - Afr Amer 83 mL/min (>60); Globulin 3.9 g/dL (2.2-4.2); Glucose 97 mg/dL (74-106); High Density Lipoprotein 38 mg/dL; Protein, Total 7.8 g/dL (6.4-8.2); Sodium Level 138 mmol/L (136-145); Triglycerides 182 mg/dL; Very Low Density Lipoprotein 36 mg/dL (5-40)
== END | disposition home or self-care (01) ==
LOC: MFPLAB 10:43
PROVIDERS: PCP Family Medicine; Visit Provider Family Medicine
DX: Z13.6 Encounter for screening for cardiovascular disorders (principal); E66.9 Obesity, unspecified
CPT/HCPCS: 36415; 80053; 80061; 85025

== ENCOUNTER → 2024-03-14 | Outpatient (CLI) | payer MEDICARE, SELFPAY ==
[2024-03-14 12:51] LABS: Absolute Lymphocyte Count 1.03 X10^3/uL (0.83-4.51); Absolute Neutrophil Count 3.5 X10^3/uL (2.0-7.7); Basophil# 0.04 X10^3/uL; Basophil% 0.7 % (0-1); Eosinophil# 0.31 X10^3/uL; Eosinophils% 5.8 % (0-5); Hematocrit 43.1 % (40-54); Hemoglobin 14.3 g/dL (13.0-16.5); Lymphocyte # 1.03 X10^3/ul (0.83-4.51); Lymphocyte % 19.1 % (19-41); Mean Corp Hgb Conc 33.2 g/dL (32-36); Mean Corpuscular Hgb 29.2 pg (27.0-32.0); Mean Platelet Vol. 9.5 fl (6.2-12.0); Monocyte# 0.45 X10^3/uL; Monocyte% 8.4 % (0-10); NRBC Flagged by Analyzer 0 % (0-5); Neutrophil # 3.52 X10^3/uL (2.7-7.7); Neutrophil % 65.4 % (47-70); Platelet Count 285 K/mm3 (150-450); RBC Distribution Width CV 12.8 % (11.6-14.6); RBC Distribution Width SD 40.9 fl (35.1-43.9); White Blood Count 5.4 K/mm3 (4.4-11.0)
[2024-03-14 13:09] LABS: ALB/GLOB Ratio 1.2 RATIO (0.9-2.4); AST(SGOT) 23 U/L (15-37); Alanine Aminotransfer ALT/SGPT 31 U/L (16-61); Albumin, Serum 4.1 g/dL (3.2-5.0); Alkaline Phosphatase 119 U/L (45-117); Anion Gap 6 (5-15); BUN 22 mg/dL (7-18); BUN/Creat Ratio 17.7 RATIO (10-20); Calcium,Total 9.3 mg/dL (8.5-10.1); Chloride 108 mmol/L (98-107); Creatinine, Serum 1.24 mg/dL (0.70-1.30); EST Glomerular Filtration Rate 62 mL/min (>60); Est Glom Filt Rate - Afr Amer 75 mL/min (>60); Globulin 3.5 g/dL (2.2-4.2); Glucose 100 mg/dL (74-106); Potassium 4.6 mmol/L (3.5-5.1); Protein, Total 7.6 g/dL (6.4-8.2); Sodium Level 139 mmol/L (136-145)
== END | disposition home or self-care (01) ==
LOC: MFPLAB 09:39
PROVIDERS: PCP Family Medicine; Visit Provider Family Medicine
DX: F32.A Depression, unspecified (principal); Z13.1 Encounter for screening for diabetes mellitus
CPT/HCPCS: 36415; 80053; 85025

== ENCOUNTER 2024-07-18 04:42 | Inpatient (IN) | payer MEDICARE, SELFPAY ==
[2024-07-18] VITALS (8 sets, daily range): BP systolic 113–142; BP diastolic 72–104; PULSE 77–90; RESP 16–18; TEMP 35.9–36.9; O2SAT 96–98; BMI 39.2
--- NOTE | 2024-07-18 05:45 | RAD_ITS ---
INDICATION: SOB EXAMINATION/TECHNIQUE: X-RAY - XR Chest 1 View AP portable. 5:49 AM COMPARISON: Prior study dated: 01/12/2020 FINDINGS: LINES/DEVICES: None. LUNGS: Patchy infiltrates in the lung bases greater on the right. No consolidation. No pneumothorax. MEDIASTINUM: Unremarkable. CARDIAC SILHOUETTE: Not enlarged. BONES AND SOFT TISSUES: No acute abnormalities. RAD/Chest 1 View (Portable) IMPRESSION: Bilateral infiltrates may be consistent with pneumonia, edema less likely. Electronically Signed: Cassy Ross MD at 7:05 EST ,
--- NOTE | 2024-07-18 07:17 | EDS_ITS ---
HPI History of Present Illness Informant: patient Narrative Narrative: 69-year-old male presenting to the emergency room with a chief complaint of dyspnea. Patient states that on Tuesday he went deer hunting and noticed that he felt short of breath. He would walk any distance he would have to sit down and catch his breath and after couple minutes began to feel normal. Symptoms have persisted. He denies any chest pain with it. No fever no cough. Patient does wonder if he has sleep apnea but has not had a formal testing. No known coronary artery disease or history of hypertension or CHF. He has not had prior stroke. PFSH COUNT INCLUDES THE [facility] Medical History Umbilical hernia without obstruction and without gangrene Gout Depression Home Medications ?Medication ?Instructions ?Recorded ?Last Taken ?Type acetaminophen 325 mg tablet 650 mg (2 x 325 mg) PO Q6H PRN PRN 01/12/20 Unknown Rx Pain Score 1-10/Temp > 100.7 F Allergy/AdvReac Type Severity Reaction Status Date / Time No Known Allergies Allergy Verified 01/12/20 01:42 Family History Mother Heart disease Father Cancer liver and pancreas Surgical History History of mandibular surgery History of surgery on wrist History of left elbow replacement History of arthroplasty of left shoulder History of arthroplasty of right shoulder History of arthroscopy of right knee Social History Smoking Status: Never smoker ROS [facility] ED Constitutional Constitutional ED: Denies chills, fever(s) or weight loss Eyes Eyes: Denies change in vision or diplopia ENT ENT ED: Denies ear pain, rhinorrhea or sore throat Cardiovascular Cardiovascular: Reports palpitations and racing heartbeat; Denies chest pain or orthopnea Respiratory/Chest Respiratory/Chest: Reports dyspnea and dyspnea on exertion; Denies cough or orthopnea Gastrointestinal Gastrointestinal: Denies abdominal pain, diarrhea, nausea or vomiting Genitourinary Genitourinary ED: Denies dysuria, hematuria or urinary frequency Musculoskeletal Musculoskeletal: Denies arthralgias or myalgias Integumentary Denies abscess or rash Neurologic Neurologic: Denies headache(s) or weakness Psychiatric Psychiatric: Denies anxiety, depression, suicidal ideation or suicidal thoughts Endocrine Endocrinology: Denies polydipsia, polyphagia or polyuria Allergic/Immunologic Allergic/Immunologic ED: Denies mouth swelling, tongue swelling or urticaria EXAM Physical Exam Const Positive well nourished, well developed and obese General Appearance ED: well developed and NAD Nutritional Appearance: obese HEENT Reports normocephalic, head/scalp atraumatic and moist mucous membranes Eyes PERRL and EOMs intact bilaterally Neck no lymphadenopathy, supple and no JVD Resp normal respiratory effort and clear to auscultation bilaterally Cardio regular rhythm and no murmurs Rate: tachycardic Rhythm: abnormal rhythm irregularly irregular GI normal to inspection, nondistended, normoactive bowel sounds and non-tender Palpation: soft Back/Spine no CVA tenderness and normal ROM Extremity normal to inspection General Extremety ED: Negative for edema General Extremity: Negative for edema Neuro oriented x3 and CN's II-XII intact bilaterally Sensorium / Orientation: alert Motor Exam: strength 5/5 throughout Psych mental status grossly normal Mood & Affect: Negative for depressed or tearful Skin no rashes or lesions noted and no wounds MDM MDM MDM Narrative Medical decision making narrative: Differential diagnosis includes but not limited to congestive heart failure cardiac dysrhythmia acute coronary syndrome electrolyte abnormality thyroid dysfunction anemia pulmonary hypertension My independent interpretation of the chest x-ray is mild pulmonary edema.. EKG shows A-fib with RVR at a rate of 123 with a rightward axis. Patient's white count 7.5 hemoglobin 13.3 platelet count of 240. Creatinine 1.5 magnesium 2.2 sodium 140 potassium 4.5 troponin is elevated at 128.5. His EKG is not ischemic this is most likely rate dependent elevation. TSH is noted to be slightly elevated at 5.06. Patient received aspirin. A 10 mg bolus of Cardizem was given. This reduced his heart rate to the 80s but then he steadily roselia again to around 100 while also in A-fib. He was placed on a Cardizem drip. As this is his first time with atrial fibrillation that he is aware of and he is currently on a drip plan will be admission to the hospital. [id number] score calculated to be 1. History & Record Review Discussion w/independent historian: Patient Lab Data Attestation: I reviewed the patient's lab results. Radiography Diagnostic Testing: Clinical Impression(s) from Imaging Studies Chest X-Ray 07/18/24 05:45 IMPRESSION: Bilateral infiltrates may be consistent with pneumonia, edema less likely. Electronically Signed: Cassy Ross MD at 7:05 EST , EKG Initial EKG: Attestation: I personally reviewed and interpreted this EKG as follows: Comments: Atrial fibrillation with rapid ventricular response 123 bpm Management Discussion w/another healthcare provider: Hospitalist Discharge Plan Triage ED Provider: Sarmad Sykes Dx/Rx/DC Orders Prescriptions: No Action acetaminophen 325 MG tablet 650 mg PO Q6H PRN PRN (Reason: Pain Score 1-10/Temp > 100.7 F) 0RF Primary Care Provider: Soila Yin Referrals: Soila Yin MD [Primary Care Provider] - Print Language: Icelandic
--- NOTE | 2024-07-18 07:35 | HP.PCM.HOS_ITS ---
HPI - General General Date of Admission: 07/18/24 Date of Service: 07/18/24 Chief Complaint: Shortness of breath HPI Narrative CHEPE THURSTON, is a 69 M with past medical history significant for ADHD, depression generalized osteoarthritis who presented with shortness of breath. Per patient he was out hunting when he developed shortness of breath with activity. He denied any chest pain however he felt his heart was racing. Presented to the emergency department as a result. Patient was found to be in A-fib with RVR. Did receive Cardizem bolus in the emergency department placed on a drip and subsequently admitted to a monitored bed for further management [facility] Medical History Umbilical hernia without obstruction and without gangrene Gout Depression Home Medications ?Medication ?Instructions ?Recorded ?Last Taken ?Type dextroamphetamine-amphetamine 30 1 tab PO DAILY adhd 07/18/24 07/17/24 History mg tablet dextroamphetamine-amphetamine ER 1 cap PO DAILY adhd 07/18/24 07/17/24 History 30 mg 24hr capsule,extend release escitalopram oxalate 10 mg tablet 10 mg PO DAILY depression 07/18/24 07/17/24 History meloxicam 15 mg tablet 15 mg PO DAILY knee 07/18/24 07/17/24 History sildenafil 50 mg tablet 50 mg PO QHS PRN erectile dysf 07/18/24 Unknown History Allergy/AdvReac Type Severity Reaction Status Date / Time No Known Allergies Allergy Verified 01/12/20 01:42 Family History Mother Heart disease Father Cancer liver and pancreas Surgical History History of mandibular surgery History of surgery on wrist History of left elbow replacement History of arthroplasty of left shoulder History of arthroplasty of right shoulder History of arthroscopy of right knee Social History Smoking Status: Never smoker ROS ROS Narrative GENERAL: denies fever, chills, night sweats, weight loss, anorexia HEENT: denies headache, sinus congestion, or drainage, dysphagia RESPIRATORY: shortness of breath, dyspnea on exertion CARDIAC: palpitations, GASTROINTESTINAL: denies abdominal pain, nausea, vomiting, melena, GENITOURINARY: denies dysuria, urgency, frequency, heamaturia EXTREMITY: denies swelling MUSCULOSKELETAL: denies current joint pain or tenderness NEUROLOGIC: denies focal numbness, weakness, tingling HEMATOLOGIC: denies easy bruising and/or hemorrhage INTEGUMENT: denies rashes PSYCHIATRIC: denies suicidal or homicidal ideation Physical Exam Narrative GENERAL: cooperative HEENT: Atraumatic; normocephalic EYES; Anicteric, Normal Conjunctiva NECK; supple, normal thyroid, RESPIRATORY: Diminished to auscultation CARDIOVASCULAR: Irregularly irregular GI: soft, normoactive bowel sounds, : No Renal angle tenderness; EXTREMITIES: No edema, no clubbing, MUSCULOSKELETAL: no muscle wasting NEURO: Awake; no lateralizing signs. SKIN: No Rash PSYCH; Flat affect Results Lab / Micro Data 07/18/24 10:02 07/18/24 10:02 Imaging Radiology Impression Chest X-Ray 07/18/24 05:45 IMPRESSION: Bilateral infiltrates may be consistent with pneumonia, edema less likely. Electronically Signed: Cassy Ross MD at 7:05 [facility] , Assessment & Plan Assessment/Plan (1) Acute dyspnea: (2) Elevated troponin: (3) Atrial fibrillation with RVR: PLAN: Plan Patient is a 69-year-old gentleman presenting with shortness of breath and exertional dyspnea found to be in A-fib with RVR 1. New onset A-fib with RVR ? Patient did receive Cardizem bolus in the ED started on Cardizem drip admitted to monitored bed for subsequent management. As part of patient's evaluation 2D echo, serial cardiac enzymes TSH BMP CBC with differential ordered 2. Suspected congestive heart failure ? Checks x-ray did demonstrate bilateral infiltrate patient however did not have any cough no fever do suspect congestive heart failure ordered proBNP patient started on Lasix echo ordered as stated above 3. Elevated troponin ? Suspected to be secondary to demand ischemia however patient was placed on a monitored bed with subsequent serial cardiac enzymes ordered to rule out acute coronary syndrome. If patient troponin continues to rise we will obtain cardiology consultation 4. Acute kidney injury ? Patient baseline creatinine from 03/14/2024 was 1.24 creatinine on admission was 1.5 we will avoid potential nephrotoxic medication ordered renal ultrasound as part of patient's evaluation 5. ADHD ? Patient is on Adderall plan is to resume once home meds have been reconciled 6. Depression ? Patient is on Lexapro we will continue 7. Generalized osteoarthritis ? Patient is on meloxicam given his impaired kidney function this will be held 8. Class II obesity with BMI of 39.2 ? Complicating care weight loss advised 9. DVT prophylaxis ? Patient started on therapeutic Lovenox Time spent in the patient's overall evaluation,decision-making process, review of diagnostic data, adjustment of management, discussion with other providers, nursing nursing and ancillary staff involved in patient's care documentation, 76 Minutes Advance planning; did discuss with the patient regarding advanced directives as well as CODE STATUS. Did explain the various scenarios involved ( FULL CODE, DNR CCA, DNR CCA with no intubation, and DNR CC and what each meant) patient elected to remain full code with CPR and intubation if needed. Order was placed. Time spent on discussion 16minutes. Charges/Coding Multi Select Codes Visit Charges Visit Charges: 79246 Init Hosp Hospitalists' Procedures Procedures: 83912 Advncd Care Plan 30 Min
[2024-07-18 08:03] LABS: Absolute Lymphocyte Count 1.59 X10^3/uL (0.83-4.51); Absolute Neutrophil Count 5.2 X10^3/uL (2.0-7.7); Basophil# 0.04 X10^3/uL; Basophil% 0.5 % (0-1); Eosinophil# 0.18 X10^3/uL; Eosinophils% 2.3 % (0-5); Hemoglobin 13.3 g/dL (13.0-16.5); Lymphocyte # 1.59 X10^3/ul (0.83-4.51); Lymphocyte % 20.7 % (19-41); Mean Corp Hgb Conc 32.4 g/dL (32-36); Mean Corpuscular Volume 92.3 fL (80-94); Mean Platelet Vol. 9.9 fl (6.2-12.0); Monocyte# 0.56 X10^3/uL; Monocyte% 7.3 % (0-10); NRBC Flagged by Analyzer 0 % (0-5); Neutrophil # 5.17 X10^3/uL (2.7-7.7); Neutrophil % 67.4 % (47-70); Platelet Count 247 K/mm3 (150-450); RBC Distribution Width CV 14.6 % (11.6-14.6); RBC Distribution Width SD 48.6 fl (35.1-43.9); Red Blood Count 4.44 M/mm3 (4.6-6.2); White Blood Count 7.7 K/mm3 (4.4-11.0)
[2024-07-18 08:34] LABS: Prothrombin Time (Protime)PT. 13.1 SECONDS (11.7-14.9)
[2024-07-18 08:35] LABS: Partial Thromboplast Time 29.8 Seconds (24.1-36.2)
--- NOTE | 2024-07-18 09:31 | ECHOD_ITS ---
Reason For Study: ATRIAL FIBRILLATION Procedure This was a 2D Doppler, Color Flow transthoracic echocardiogram. The study was technically difficult. Exam performed portable in patient room. Left Ventricle Normal LV size. The estimated ejection fraction is 60 %. Diastolic function is indeterminate. No regional wall motion abnormalities noted. Right Ventricle Normal RV size. Normal systolic function. Atria The left atrium is mildly enlarged. Normal right atrium. No doppler evidence for ASD. Mitral Valve There is no mitral valve stenosis. Mild (1+) mitral valve insufficiency. Tricuspid Valve There is no tricuspid stenosis. Trivial tricuspid valve insufficiency. Unable to estimate RV systolic pressure due to insufficient tricuspid regurgitant envelope. Aortic Valve Trisinus/trileaflet aortic valve. There is no aortic stenosis. No aortic valve insufficiency. Pulmonic Valve There is no pulmonic valvular stenosis. No pulmonic valve insufficiency. Great Vessels Normal aortic root. Pericardium/Pleural No pericardial effusion. MMode/2D Measurements & Calculations LVIDd: 4.5 cm IVSd: 2.0 cm LVOT diam: 2.2 cm LVIDs: 2.8 cm LVPWd: 1.6 cm LVOT area: 3.8 cm2 RVDd: 3.6 cm FS: 37.6 % asc Aorta Diam: 3.4 cm LAV(MOD-bp): 86.5 ml LVAd ap4: 24.2 cm2 LAV(MOD-bp) Indexed: 37.2 ml/m2 LVLd ap4: 8.4 cm LAV(MOD-sp2): 109.6 ml EDV(MOD-sp4): 57.1 ml LAV(MOD-sp4): 64.2 ml EDV(sp4-el): 59.6 ml LVAs ap4: 15.1 cm2 LVLs ap4: 7.4 cm ESV(MOD-sp4): 26.3 ml ESV(sp4-el): 26.2 ml EF(MOD-sp4): 54.0 % EF(sp4-el): 56.1 % LVAd ap2: 23.7 cm2 SV(MOD-sp4): 30.8 ml SV(MOD-sp2): 36.6 ml LVLd ap2: 8.1 cm SI(MOD-sp4): 13.2 ml/m2 SI(MOD-sp2): 15.7 ml/m2 EDV(MOD-sp2): 57.7 ml EDV(sp2-el): 59.1 ml LVAs ap2: 13.1 cm2 LVLs ap2: 6.8 cm ESV(MOD-sp2): 21.1 ml ESV(sp2-el): 21.2 ml EF(MOD-sp2): 63.4 % SV(sp4-el): 33.4 ml Ao sinus diam: 3.[address] Junction: 2.9 cm LA dimension(2D): 4.6 cm LA A4 area: 21.5 cm2 RA A4 area: 18.4 cm2 TAPSE: 1.6 cm Time Measurements MV dec time: 0.13 sec Doppler Measurements & Calculations MV E max peter: 92.1 cm/sec Lat Peak E' Peter: 9.2 cm/sec Med Peak E' Peter: 8.7 cm/sec E/E' lat: 10.0 E/E' med: 10.6 Ao V2 max: 106.5 cm/sec LV V1 max: 79.7 cm/sec SV(LVOT): 51.5 ml Ao max P.6 mmHg LV V1 max P.5 mmHg Ao V2 mean: 76.9 cm/sec LV V1 mean P.5 mmHg Ao mean P.7 mmHg LV V1 mean: 57.0 cm/sec Ao V2 VTI: 19.4 cm LV V1 VTI: 13.7 cm AV (velocity ratio): 0.71 JESSEE(I,D): 2.7 cm2 JESSEE(V,D): 2.8 cm2 PA V2 max: 70.5 cm/sec TR max peter: 180.1 cm/sec TR max P.0 mmHg ECHO/Echo Complete Interpretation Summary The estimated ejection fraction is 60 %. Diastolic function is indeterminate. The left atrium is mildly enlarged. Mild (1+) mitral valve insufficiency. Ordering Physician: Tristen Estrella Performed By: Jayla Schmitt RDCS
[2024-07-18 10:19] LABS: Anion Gap 5 (5-15); BUN 27 mg/dL (7-18); Chloride 108 mmol/L (98-107); EST Glomerular Filtration Rate 50 mL/min (>60); Est Glom Filt Rate - Afr Amer 61 mL/min (>60); Estimated Creatinine Clearance 61.23 ml/min; Glucose 136 mg/dL (74-106); Magnesium 2.2 mg/dL (1.6-2.6); Potassium 4.5 mmol/L (3.5-5.1); Sodium Level 140 mmol/L (136-145); Troponin-I HS 128 pg/mL (3.0-78.0)
[2024-07-18 10:20] LABS: Absolute Lymphocyte Count 1.23 X10^3/uL (0.83-4.51); Basophil# 0.04 X10^3/uL; Basophil% 0.5 % (0-1); Eosinophil# 0.21 X10^3/uL; Eosinophils% 2.5 % (0-5); Hemoglobin 13.2 g/dL (13.0-16.5); Lymphocyte # 1.23 X10^3/ul (0.83-4.51); Lymphocyte % 14.9 % (19-41); Mean Corpuscular Hgb 29.8 pg (27.0-32.0); Mean Corpuscular Volume 90.3 fL (80-94); Mean Platelet Vol. 9.4 fl (6.2-12.0); Monocyte# 0.63 X10^3/uL; Monocyte% 7.6 % (0-10); NRBC Flagged by Analyzer 0 % (0-5); Neutrophil # 5.99 X10^3/uL (2.7-7.7); Neutrophil % 72.4 % (47-70); Platelet Count 234 K/mm3 (150-450); RBC Distribution Width CV 14.4 % (11.6-14.6); RBC Distribution Width SD 46.6 fl (35.1-43.9); Red Blood Count 4.43 M/mm3 (4.6-6.2); White Blood Count 8.3 K/mm3 (4.4-11.0)
[2024-07-18] MEDS: dilTIAZem 60 MG Tablet PO ×3 (10:37→23:47)
[2024-07-18] MEDS: Enoxaparin 120 MG/0.8 ML Syringe SC ×2 (10:37→20:38)
[2024-07-18 10:47] LABS: D-Dimer Quantitative (DVT/PE) 1.17 FEU/ug/m (0.27-0.49)
[2024-07-18 10:59] LABS: AST(SGOT) 42 U/L (15-37); Alanine Aminotransfer ALT/SGPT 219 U/L (16-61); Albumin, Serum 3.3 g/dL (3.2-5.0); Alkaline Phosphatase 239 U/L (45-117); Anion Gap 5 (5-15); BUN 25 mg/dL (7-18); BUN/Creat Ratio 22.7 RATIO (10-20); Calcium,Total 8.8 mg/dL (8.5-10.1); Chloride 109 mmol/L (98-107); EST Glomerular Filtration Rate 71 mL/min (>60); Est Glom Filt Rate - Afr Amer 86 mL/min (>60); Estimated Creatinine Clearance 83.49 ml/min; Globulin 3.3 g/dL (2.2-4.2); Glucose 116 mg/dL (74-106); Magnesium 2.2 mg/dL (1.6-2.6); Phosphorus 3.4 mg/dL (2.5-4.9); Potassium 4.5 mmol/L (3.5-5.1); Protein, Total 6.6 g/dL (6.4-8.2); Sodium Level 138 mmol/L (136-145)
[2024-07-18 11:52] LABS: Troponin-I HS 116 pg/mL (3.0-78.0)
--- NOTE | 2024-07-18 11:52 | CT_ITS ---
HISTORY: dyspnea. TECHNIQUE: CT angiogram of the chest was performed after the intravenous administration of 100 mL Isovue-370. Post-processing of the angiographic images was performed with multiplanar reformation and 3D reconstruction. Individualized dose optimization techniques were used for this CT. 1451 images. COMPARISON: XR same day. CT 07/03/2007. FINDINGS: CENTRAL AIRWAYS: Patent. LUNGS: Mild septal thickening and linear bilateral lower lobe opacities. Stable 2 to 3 mm right upper and middle lobe pleural-based nodules. Triangular 7 mm right lower lobe pleural-based nodule; Fleischner Society Guidelines suggest no follow-up is necessary for patients with a low or high risk of malignancy. PLEURA: Mild bilateral pleural effusions. HEART/PERICARDIUM: Heart within normal limits in size with coronary artery disease. No pericardial effusion. PULMONARY ARTERIES: No filling defect. AORTA/VESSELS: No thoracic aortic aneurysm or dissection flap. Mild atherosclerosis. MEDIASTINUM/MARCIE: No pathologically enlarged lymph nodes. OSSEOUS STRUCTURES: Degenerative change. UPPER ABDOMEN: Unremarkable. CT/CTA Chest W/WO Contrast IMPRESSION: Mild bilateral pleural effusions with very mild pulmonary edema and lower lobe atelectasis. No evidence of pulmonary embolism. Electronically Signed: Shelly Enciso MD at 14:00 EST ,
[2024-07-18 12:18] LABS: BNP,B-Type NATRIURETIC PEPTIDE 210.8 pg/mL (0-100)
--- NOTE | 2024-07-18 16:13 | EKG12_ITS ---
Test Reason : SOB Blood Pressure : */* mmHG Vent. Rate : 123 BPM Atrial Rate : * BPM P-R Int : * ms QRS Dur : 84 ms QT Int : 282 ms P-R-T Axes : * 110 -23 degrees QTcB Int : 403 ms Atrial fibrillation with rapid ventricular response Right axis deviation Low voltage QRS Abnormal QRS-T angle, consider primary T wave abnormality Abnormal ECG Confirmed by Ramon Feliciano ([id number]), editorial manager JÚNIOR ARTHUR ([id number]) on 07/19/2024 1:02:36 PM Referred By: Confirmed By: Ramon Feliciano
[2024-07-18 17:19] LABS: Troponin-I HS 109 pg/mL (3.0-78.0)
[2024-07-18] MEDS: 0.9% Saline Lock 10 ML Syringe IV (20:38)
[2024-07-19] VITALS (8 sets, daily range): BP systolic 110–132; BP diastolic 70–96; PULSE 74–93; RESP 14–18; TEMP 36.4–37; O2SAT 96–99
[2024-07-19 06:35] LABS: Absolute Lymphocyte Count 1.68 X10^3/uL (0.83-4.51); Absolute Neutrophil Count 4.1 X10^3/uL (2.0-7.7); Basophil# 0.03 X10^3/uL; Basophil% 0.5 % (0-1); Hematocrit 38.5 % (40-54); Hemoglobin 12.6 g/dL (13.0-16.5); Lymphocyte # 1.68 X10^3/ul (0.83-4.51); Lymphocyte % 25.4 % (19-41); Mean Corp Hgb Conc 32.7 g/dL (32-36); Mean Corpuscular Hgb 29.5 pg (27.0-32.0); Mean Corpuscular Volume 90.2 fL (80-94); Mean Platelet Vol. 9.7 fl (6.2-12.0); Monocyte# 0.53 X10^3/uL; NRBC Flagged by Analyzer 0 % (0-5); Neutrophil # 4.08 X10^3/uL (2.7-7.7); Neutrophil % 61.6 % (47-70); Platelet Count 228 K/mm3 (150-450); RBC Distribution Width CV 14.5 % (11.6-14.6); RBC Distribution Width SD 47.3 fl (35.1-43.9); Red Blood Count 4.27 M/mm3 (4.6-6.2); White Blood Count 6.6 K/mm3 (4.4-11.0)
[2024-07-19 06:58] LABS: Anion Gap 9 (5-15); BUN 18 mg/dL (7-18); BUN/Creat Ratio 18.4 RATIO (10-20); Calcium,Total 8.8 mg/dL (8.5-10.1); Chloride 106 mmol/L (98-107); Cholesterol 231 mg/dL (200); Creatinine, Serum 0.98 mg/dL (0.70-1.30); EST Glomerular Filtration Rate 81 mL/min (>60); Est Glom Filt Rate - Afr Amer 98 mL/min (>60); Estimated Creatinine Clearance 93.71 ml/min; Glucose 112 mg/dL (74-106); High Density Lipoprotein 73 mg/dL; Potassium 4.3 mmol/L (3.5-5.1); Sodium Level 137 mmol/L (136-145); Triglycerides 146 mg/dL; Very Low Density Lipoprotein 29 mg/dL (5-40)
--- NOTE | 2024-07-19 08:46 | PN.HOSP_ITS ---
Reason for Visit Reason for Visit: Diagnoses Unspecified atrial fibrillation (07/18/24) Dyspnea, unspecified (07/18/24) Other specified abnormal findings of blood chemistry (07/18/24) Subjective Subjective Patient seen complains of feeling tired. Heart rate relatively well-controlled. Objective Data Objective Data Vital Signs: Vital Signs Temp Pulse Resp BP Pulse Ox O2 Del Method 97.6 F L 93 17 116/96 H 96 Room Air 07/19/24 08:39 07/19/24 08:39 07/19/24 08:39 07/19/24 08:39 07/19/24 08:39 07/19/24 08:39 Oxygen Delivery Method Room Air Weight: 120.4 kg Body Mass Index (BMI) 39.2 Intake & Output: Intake and Output for Last 24 Hours 07/17/24 07/18/24 07/19/24 23:59 23:59 23:59 Intake Total 1100 / 1100 200 / 200 Balance 1100 / 1100 200 / 200 Lab / Micro Data 07/19/24 05:47 07/19/24 05:47 Labs: Laboratory Results - last 24 hr 07/18/24 04:53: Sodium 140, Potassium 4.5, Chloride 108 H, Carbon Dioxide 27.0, Anion Gap 5, BUN 27 H, Creatinine 1.50 H, Estim Creat Clear Calc 61.23, Est GFR (MDRD) Af Amer 61, Est GFR (MDRD) Non-Af 50 L, BUN/Creatinine Ratio 18.0, G lucose 136 H, Calcium 9.0, Magnesium 2.2, Troponin I High Sens 128 H*, TSH 5.060 H 07/18/24 10:02: WBC 8.3, RBC 4.43 L, Hgb 13.2, Hct 40.0, MCV 90.3, MCH 29.8, MCHC 33.0, RDW Std Deviation 46.6 H, RDW Coeff of Alverto 14.4, Plt Count 234, MPV 9.4, Immature Gran % (Auto) 2.100 H, Neut % (Auto) 72.4 H, Lymph % (Auto) 14.9 L , [place] % (Auto) 7.6, Eos % (Auto) 2.5, Baso % (Auto) 0.5, Absolute Neuts (auto) 6.0, Absolute Lymphs (auto) 1.23, Nucleated RBC % 0, D-Dimer Quant (PE/DVT) 1.17 H*, Sodium 138, Potassium 4.5, Chloride 109 H, Carbon Dioxide 24.0, Anion Gap 5, BUN 25 H, Creatinine 1.10, Estim Creat Clear Calc 83.49, Est GFR (MDRD) Af Amer 86, Est GFR (MDRD) Non-Af 71, BUN/Creatinine Ratio 22.7 H, Glucose 116 H, Calcium 8.8, Phosphorus 3.4, Magnesium 2.2, Total Bilirubin 0.80, AST 42 H, ALT 219 H, Alkaline Phosphatase 239 H, Troponin I High Sens 116 H, B-Natriuretic Peptide 210.8 H, Total Protein 6.6, Albumin 3.3, Globulin 3.3, Albumin/Globulin Ratio 1.0, TSH 2.750 07/18/24 16:08: Troponin I High Sens 109 H 07/19/24 05:47: WBC 6.6, RBC 4.27 L, Hgb 12.6 L, Hct 38.5 L, MCV 90.2, MCH 29.5, MCHC 32.7, RDW Std Deviation 47.3 H, RDW Coeff of Alverto 14.5, Plt Count 228, MPV 9.7, Immature Gran % (Auto) 1.500 H, Neut % (Auto) 61.6, Lymph % (Auto) 25.4, [place] % (Auto) 8.0, Eos % (Auto) 3.0, Baso % (Auto) 0.5, Absolute Neuts (auto) 4.1, Absolute Lymphs (auto) 1.68, Nucleated RBC % 0, Sodium 137, Potassium 4.3, Chloride 106, Carbon Dioxide 23.0, Anion Gap 9, BUN 18, Creatinine 0.98, Estim Creat Clear Calc 93.71, Est GFR (MDRD) Af Amer 98, Est GFR (MDRD) Non-Af 81, BUN/Creatinine Ratio 18.4, Glucose 112 H, Calcium 8.8, Triglycerides 146, C holesterol 231 H, LDL Cholesterol 129, VLDL Cholesterol 29, HDL Cholesterol 73 Radiography Diagnostic Testing: Radiology Impression Echocardiogram 07/18/24 09:31 Interpretation Summary The estimated ejection fraction is 60 %. Diastolic function is indeterminate. The left atrium is mildly enlarged. Mild (1+) mitral valve insufficiency. Ordering Physician: Tristen Estrella Performed By: Jayla Schmitt, RDCS Chest CTA 07/18/24 11:52 IMPRESSION: Mild bilateral pleural effusions with very mild pulmonary edema and lower lobe atelectasis. No evidence of pulmonary embolism. Electronically Signed: Shelly Enciso MD at 14:00 EST Reading Location ID and State: [facility] / [place] Tel , Service support , Physical Exam Narrative GENERAL: cooperative HEENT: Atraumatic; normocephalic EYES; Anicteric, Normal Conjunctiva NECK; supple, normal thyroid, RESPIRATORY: Diminished to auscultation CARDIOVASCULAR: Irregularly irregular GI: soft, normoactive bowel sounds, : No Renal angle tenderness; EXTREMITIES: No edema, no clubbing, MUSCULOSKELETAL: no muscle wasting NEURO: Awake; no lateralizing signs. SKIN: No Rash PSYCH; Flat affect Assessment & Plan Assessment/Plan (1) Acute dyspnea: (2) Elevated troponin: (3) Atrial fibrillation with RVR: PLAN: Plan Patient is a 69-year-old gentleman presenting with shortness of breath and exertional dyspnea found to be in A-fib with RVR 1. New onset A-fib with RVR ? Patient did receive Cardizem bolus in the ED started on Cardizem drip admitted to monitored bed for subsequent management. As part of patient's evaluation 2D echo, serial cardiac enzymes TSH BMP CBC with differential ordered 2D echo did show ; The estimated ejection fraction is 60 %. Diastolic function is indeterminate. The left atrium is mildly enlarged.Mild (1+) mitral valve insufficiency. 2. Acute congestive heart failure with preserved ejection fraction ? Chest x-ray did demonstrate bilateral infiltrate patient however did not have any cough no fever do suspect congestive heart failure ordered proBNP patient started on Lasix echo ordered as stated above ? 07/19/2024 ; patient BNP was slightly elevated CT of the chest demonstrated bilateral pleural effusion with mild pulmonary edema. Patient subsequently started on Lasix.2D echo did show ; The estimated ejection fraction is 60 %. Diastolic function is indeterminate. The left atrium is mildly enlarged.Mild (1+) mitral valve insufficiency. 3. Elevated troponin ? Suspected to be secondary to demand ischemia however patient was placed on a monitored bed with subsequent serial cardiac enzymes ordered to rule out acute coronary syndrome. If patient troponin continues to rise we will obtain cardiology consultation ? 07/19/2024; patient troponin did trend down however given patient complaint of intermittent chest pain ordered a nuclear stress test in the 4. Acute kidney injury ? Patient baseline creatinine from 03/14/2024 was 1.24 creatinine on admission was 1.5 we will avoid potential nephrotoxic medication ordered renal ultrasound as part of patient's evaluation 5. ADHD ? Patient is on Adderall plan is to resume once home meds have been reconciled 6. Depression ? Patient is on Lexapro we will continue 7. Generalized osteoarthritis ? Patient is on meloxicam given his impaired kidney function this will be held 8. Class II obesity with BMI of 39.2 ? Complicating care weight loss advised 9. DVT prophylaxis ? Patient started on therapeutic Lovenox Time spent in the patient's overall evaluation,decision-making process, review of diagnostic data, adjustment of management, discussion with other providers, nursing nursing and ancillary staff involved in patient's care documentation, 52 minutes Charges/Coding Visit Charges Inpatient E&M: 21738 [facility] L3
[2024-07-19] MEDS: Enoxaparin 120 MG/0.8 ML Syringe SC ×2 (08:48→22:43)
--- NOTE | 2024-07-19 10:00 | CASEMGMT ---
RN CM Face to Face with patient for initial transition planning/care coordination assessment. RN CM introduced self and role at [facility]. Patient lying in bed, alert and oriented. Patient willing to participate in assessment and is able to answer all questions appropriately. Care providers, pharmacy, and demographics verified. Strata: 1 PCP: Humphrey Specialists: Vielka Mahoney Preferred Pharmacy: [facility] Insurance: [facility] Prescription Benefit: none Living Will/HPOA: yes, son Omar Lora LNOK: son Living Arrangements: Patient lives alone in a duplex with bed and bath on first floor, 2 steps to enter the home. Patient states he is independent at home. Transportation: self, son DME/HHC: Patient denies DME in the home. No previous HHC or SNF Patient wishes to discharge home, denies need for home health at this time. Patient states he has no further needs or concerns at this time. CM to follow for discharge planning needs that may arise. Disposition Plan: Patient to discharge home with family support and follow-up plans in place. Ching ZAMARRIPA, RN, CM
[2024-07-19] MEDS: Escitalopram Oxalate 10 MG Tablet PO (11:02)
[2024-07-19] MEDS: dilTIAZem 60 MG Tablet PO ×2 (11:02→17:04)
[2024-07-19] MEDS: Furosemide 40 MG/4 ML Vial IV ×2 (13:37→18:18)
[2024-07-19] MEDS: 0.9% Saline Lock 10 ML Syringe IV ×3 (13:38→22:43)
--- NOTE | 2024-07-19 15:10 | CHAPLAIN ---
Type of Pastoral Visit _x__ Initial Visit ___ Follow-up Visit ___ On-call Visit ___ General Patient Visit ___ Spiritual Assessment ___ Family Conference ___ Bereavement ___ Rapid Response ___ Code Blue ___ Other (describe below) Pastoral Care Referral From __x_ Patient ___ Family ___ Nurse ___ Physician ___ Sales And Marketing Manager ___ Peanut Butter Maker ___ Other (describe below) Sacrament/Intervention _x__ Active listening ___ Anointing ___ Worship ___ Bereavement ___ Communion _x__ Eleonora exploration ___ ___ Life review _x__ Prayer ___ Reconciliation ___ Sacrament of Sick _x__ Supportive presence ___ Wedding ___ Other (describe below) Pastoral Comments patient is welcoming and speaks of his experience and reason for admission; pt had been hunting and tells about that family experience; pt is disappointed that he was not able to complete his hunting trip with family; pt speaks also of his eleonora and the new [facility]ao[employer] that he attends now; patient welcomes presence and prayer; expresses gratitude
[2024-07-20] MEDS: dilTIAZem 60 MG Tablet PO ×2 (00:08→13:00)
[2024-07-20 00:10] VITALS: BP 128/86; PULSE 77; RESP 18; TEMP 36.2; O2SAT 96
[2024-07-20 05:05] VITALS: BP 100/66; PULSE 73; RESP 18; TEMP 36.6; O2SAT 94
[2024-07-20 05:05] LABS: Absolute Lymphocyte Count 1.67 X10^3/uL (0.83-4.51); Absolute Neutrophil Count 4.1 X10^3/uL (2.0-7.7); Basophil# 0.02 X10^3/uL; Basophil% 0.3 % (0-1); Eosinophil# 0.19 X10^3/uL; Eosinophils% 2.9 % (0-5); Hematocrit 38.4 % (40-54); Hemoglobin 12.7 g/dL (13.0-16.5); Lymphocyte # 1.67 X10^3/ul (0.83-4.51); Lymphocyte % 25.3 % (19-41); Mean Corp Hgb Conc 33.1 g/dL (32-36); Mean Corpuscular Hgb 29.7 pg (27.0-32.0); Mean Corpuscular Volume 89.7 fL (80-94); Mean Platelet Vol. 9.8 fl (6.2-12.0); Monocyte# 0.48 X10^3/uL; Monocyte% 7.3 % (0-10); NRBC Flagged by Analyzer 0 % (0-5); Neutrophil # 4.14 X10^3/uL (2.7-7.7); Neutrophil % 62.7 % (47-70); Platelet Count 246 K/mm3 (150-450); RBC Distribution Width CV 14.4 % (11.6-14.6); RBC Distribution Width SD 46.4 fl (35.1-43.9); Red Blood Count 4.28 M/mm3 (4.6-6.2); White Blood Count 6.6 K/mm3 (4.4-11.0)
[2024-07-20] MEDS: 0.9% Saline Lock 10 ML Syringe IV (05:10)
--- NOTE | 2024-07-20 05:55 | EKG12_ITS ---
Test Reason : CP Blood Pressure : */* mmHG Vent. Rate : 92 BPM Atrial Rate : * BPM P-R Int : * ms QRS Dur : 88 ms QT Int : 366 ms P-R-T Axes : * 99 -4 degrees QTcB Int : 452 ms Atrial fibrillation with premature ventricular or aberrantly conducted complexes Rightward axis Low voltage QRS Abnormal QRS-T angle, consider primary T wave abnormality Abnormal ECG When compared with ECG of 12-Jan-2020 04:02, Significant changes have occurred Confirmed by Ramon Feliciano ([id number]), medicaid eligibility specialist JÚNIOR ARTHUR ([id number]) on 07/20/2024 6:49:24 AM Referred By: Confirmed By: Ramon Feliciano
[2024-07-20 07:08] VITALS: O2SAT 96
[2024-07-20 10:00] VITALS: BP 118/75; PULSE 75; RESP 18; TEMP 36.3; O2SAT 96
[2024-07-20] MEDS: Enoxaparin 120 MG/0.8 ML Syringe SC (10:26)
[2024-07-20] MEDS: Escitalopram Oxalate 10 MG Tablet PO (10:26)
[2024-07-20] MEDS: Furosemide 40 MG/4 ML Vial IV (10:29)
--- NOTE | 2024-07-20 11:17 | PCM.PN.HOSP ---
Reason for Visit Reason for Visit: Diagnoses Unspecified atrial fibrillation (07/18/24) Dyspnea, unspecified (07/18/24) Other specified abnormal findings of blood chemistry (07/18/24) Subjective Subjective Patient scheduled to undergo nuclear stress test as part of his evaluation had a good response to the diuretic therapy Objective Data Objective Data Vital Signs: Vital Signs Temp Pulse Resp BP Pulse Ox O2 Del Method 97.4 F L 75 18 118/75 96 Room Air 07/20/24 10:00 07/20/24 10:00 07/20/24 10:00 07/20/24 10:00 07/20/24 10:00 07/20/24 10:00 Oxygen Delivery Method Room Air Weight: 120.4 kg Body Mass Index (BMI) 39.2 Intake & Output: Intake and Output for Last 24 Hours 07/18/24 07/19/24 07/20/24 23:59 23:59 23:59 Intake Total 1100 / 1100 850 / 850 0 / 0 Output Total 2300 / 2300 400 / 400 Balance 1100 / 1100 -1450 / -1450 -400 / -400 Lab / Micro Data 07/20/24 03:49 07/19/24 05:47 Labs: Laboratory Results - last 24 hr 07/20/24 03:49: WBC 6.6, RBC 4.28 L, Hgb 12.7 L, Hct 38.4 L, MCV 89.7, MCH 29.7, MCHC 33.1, RDW Std Deviation 46.4 H, RDW Coeff of Alverto 14.4, Plt Count 246, MPV 9.8, Immature Gran % (Auto) 1.500 H, Neut % (Auto) 62.7, Lymph % (Auto) 25.3, Swisher % (Auto) 7.3, Eos % (Auto) 2.9, Baso % (Auto) 0.3, Absolute Neuts (auto) 4.1, Absolute Lymphs (auto) 1.67, Nucleated RBC % 0 Physical Exam Narrative GENERAL: cooperative HEENT: Atraumatic; normocephalic EYES; Anicteric, Normal Conjunctiva NECK; supple, normal thyroid, RESPIRATORY: Diminished to auscultation CARDIOVASCULAR: Irregularly irregular GI: soft, normoactive bowel sounds, : No Renal angle tenderness; EXTREMITIES: No edema, no clubbing, MUSCULOSKELETAL: no muscle wasting NEURO: Awake; no lateralizing signs. SKIN: No Rash PSYCH; Flat affect Assessment & Plan Assessment/Plan (1) Acute dyspnea: (2) Elevated troponin: (3) Atrial fibrillation with RVR: PLAN: Plan Patient is a 69-year-old gentleman presenting with shortness of breath and exertional dyspnea found to be in A-fib with RVR 1. New onset A-fib with RVR ? Patient did receive Cardizem bolus in the ED started on Cardizem drip admitted to monitored bed for subsequent management. As part of patient's evaluation 2D echo, serial cardiac enzymes TSH BMP CBC with differential ordered 2D echo did show ; The estimated ejection fraction is 60 %. Diastolic function is indeterminate. The left atrium is mildly enlarged.Mild (1+) mitral valve insufficiency. 2. Acute congestive heart failure with preserved ejection fraction ? Chest x-ray did demonstrate bilateral infiltrate patient however did not have any cough no fever do suspect congestive heart failure ordered proBNP patient started on Lasix echo ordered as stated above ? 07/19/2024 ; patient BNP was slightly elevated CT of the chest demonstrated bilateral pleural effusion with mild pulmonary edema. Patient subsequently started on Lasix.2D echo did show ; The estimated ejection fraction is 60 %. Diastolic function is indeterminate. The left atrium is mildly enlarged.Mild (1+) mitral valve insufficiency. ? 07/20/2024 patient had a good response to diuretic therapy 3. Elevated troponin ? Suspected to be secondary to demand ischemia however patient was placed on a monitored bed with subsequent serial cardiac enzymes ordered to rule out acute coronary syndrome. If patient troponin continues to rise we will obtain cardiology consultation ? 07/19/2024; patient troponin did trend down however given patient complaint of intermittent chest pain ordered a nuclear stress test in the morning ? 07/20/2024 scheduled to undergo nuclear stress test 4. Acute kidney injury ? Patient baseline creatinine from 03/14/2024 was 1.24 creatinine on admission was 1.5 we will avoid potential nephrotoxic medication ordered renal ultrasound as part of patient's evaluation 5. ADHD ? Patient is on Adderall plan is to resume once home meds have been reconciled 6. Depression ? Patient is on Lexapro we will continue 7. Generalized osteoarthritis ? Patient is on meloxicam given his impaired kidney function this will be held 8. Class II obesity with BMI of 39.2 ? Complicating care weight loss advised 9. DVT prophylaxis ? Patient started on therapeutic Lovenox Time spent in the patient's overall evaluation,decision-making process, review of diagnostic data, adjustment of management, discussion with other providers, nursing nursing and ancillary staff involved in patient's care documentation, 38 minutes Charges/Coding Visit Charges Inpatient E&M: 28610 Subs Hosp L2
--- NOTE | 2024-07-20 15:30 | PCM.DC.SUM ---
Providers Date of Admission: 07/18/24 Date of Discharge: 07/20/24 Primary Care Physician: Soila Yin MD Reason For Visit: A-FIB WITH RVR Diagnosis Discharge Diagnosis (1) Acute dyspnea: Status: Acute Code(s): R06.00 - Dyspnea, unspecified (2) Elevated troponin: Status: Acute Code(s): R79.89 - Other specified abnormal findings of blood chemistry (3) Atrial fibrillation with RVR: Status: Acute Code(s): I48.91 - Unspecified atrial fibrillation Plan Patient is a 69-year-old gentleman presenting with shortness of breath and exertional dyspnea found to be in A-fib with RVR 1. New onset A-fib with RVR ? Patient did receive Cardizem bolus in the ED started on Cardizem drip admitted to monitored bed for subsequent management. As part of patient's evaluation 2D echo, serial cardiac enzymes TSH BMP CBC with differential ordered 2D echo did show ; The estimated ejection fraction is 60 %. Diastolic function is indeterminate. The left atrium is mildly enlarged.Mild (1+) mitral valve insufficiency. 2. Acute congestive heart failure with preserved ejection fraction ? Chest x-ray did demonstrate bilateral infiltrate patient however did not have any cough no fever do suspect congestive heart failure ordered proBNP patient started on Lasix echo ordered as stated above ? 07/19/2024 ; patient BNP was slightly elevated CT of the chest demonstrated bilateral pleural effusion with mild pulmonary edema. Patient subsequently started on Lasix.2D echo did show ; The estimated ejection fraction is 60 %. Diastolic function is indeterminate. The left atrium is mildly enlarged.Mild (1+) mitral valve insufficiency. ? 07/20/2024 patient had a good response to diuretic therapy 3. Elevated troponin ? Suspected to be secondary to demand ischemia however patient was placed on a monitored bed with subsequent serial cardiac enzymes ordered to rule out acute coronary syndrome. If patient troponin continues to rise we will obtain cardiology consultation ? 07/19/2024; patient troponin did trend down however given patient complaint of intermittent chest pain ordered a nuclear stress test in the morning ? 07/20/2024 scheduled to undergo nuclear stress test 4. Acute kidney injury ? Patient baseline creatinine from 03/14/2024 was 1.24 creatinine on admission was 1.5 we will avoid potential nephrotoxic medication ordered renal ultrasound as part of patient's evaluation 5. ADHD ? Patient is on Adderall plan is to resume once home meds have been reconciled 6. Depression ? Patient is on Lexapro we will continue 7. Generalized osteoarthritis ? Patient is on meloxicam given his impaired kidney function this will be held 8. Class II obesity with BMI of 39.2 ? Complicating care weight loss advised 9. DVT prophylaxis ? Patient started on therapeutic Lovenox 10. Dyslipidemia patient was discharged on atorvastatin Time spent in the patient's overall evaluation,decision-making process, review of diagnostic data, adjustment of management, discussion with other providers, nursing nursing and ancillary staff involved in patient's care documentation, 38 minutes Medications at Discharge Home Medications dextroamphetamine-amphetamine 30 mg tablet 1 tab PO DAILY adhd 07/18/24 dextroamphetamine-amphetamine ER 30 mg 24hr capsule,extend release 1 cap PO DAILY adhd 07/18/24 escitalopram oxalate 10 mg tablet 10 mg PO DAILY depression 07/18/24 sildenafil 50 mg tablet 50 mg PO QHS PRN erectile dysf 07/18/24 apixaban 5 mg tablet 5 mg PO BID #120 tabs 07/20/24 atorvastatin 40 mg tablet (Lipitor) 40 mg PO QHS #60 tabs 07/20/24 diltiazem HCl 120 mg capsule,extended release 24 hr (Cardizem CD) 120 mg PO DAILY #60 caps 07/20/24 furosemide 40 mg tablet (Lasix) 40 mg PO DAILY #60 tabs 07/20/24 Physical Exam Narrative GENERAL: cooperative HEENT: Atraumatic; normocephalic EYES; Anicteric, Normal Conjunctiva NECK; supple, normal thyroid, RESPIRATORY: Diminished to auscultation CARDIOVASCULAR: Irregularly irregular GI: soft, normoactive bowel sounds, : No Renal angle tenderness; EXTREMITIES: No edema, no clubbing, MUSCULOSKELETAL: no muscle wasting NEURO: Awake; no lateralizing signs. SKIN: No Rash PSYCH; Flat affect Weight / BMI Weight Weight: 120.4 kg Body Mass Index (BMI) 39.2 ABG / Lab / Microbiology Data 07/20/24 03:49 07/19/24 05:47 Laboratory: Laboratory Results - last 24 hr 07/20/24 03:49: WBC 6.6, RBC 4.28 L, Hgb 12.7 L, Hct 38.4 L, MCV 89.7, MCH 29.7, MCHC 33.1, RDW Std Deviation 46.4 H, RDW Coeff of Alverto 14.4, Plt Count 246, MPV 9.8, Immature Gran % (Auto) 1.500 H, Neut % (Auto) 62.7, Lymph % (Auto) 25.3, Mchenry % (Auto) 7.3, Eos % (Auto) 2.9, Baso % (Auto) 0.3, Absolute Neuts (auto) 4.1, Absolute Lymphs (auto) 1.67, Nucleated RBC % 0 D/C Instructions Discharge Diet: Low fat / Low cholesterol and 8 Cup Fluid Restriction Discharge Activity: Return to Normal Activity Call your doctor if you observe: Fever of 101 or Higher, Shortness of breath, Fainting spells and Chest pain DC O2, CPAP, BIPAP Needs Additional Home O2 Discharge instructions: No DC home with Oxygen: No Meaningful Use Info Meaningful Use Meaningful Use Diagnoses (Choose all that apply): CHF CHF DYLAN/ARB ordered at discharge?: No Reason DYLAN/ARB not ordered?: Not indicated Documented LVEF (%): 60 Ischemic Stroke Statin Dosing Therapy Reference: STATIN DOSE THERAPY REFERENCE: * Patients > 75 years receive moderate or high dose statin therapy. * Patients 75 years or YOUNGER should receive HIGH intensity statin dose unless contraindicated. You will be required to document reason for non-treatment if statin daily dose does not meet guidelines. HIGH DOSE STATIN THERAPY DAILY Atorvastatin > than or = to 40 mg Rosuvastatin > than or = to 20 mg Amlodipine + Atorvastatin > than or = to 2.5/40 mg Ezetimibe + Simvastatin 10/80 mg Simvastatin 80mg Discharge Plan Admission Admit Date/Time: 07/18/24 07:27 Attending Provider: Tristen Estrella Primary Care Provider: Soila Yin Discharge Orders/Prescriptions Prescriptions: New apixaban 5 mg tablet 5 mg PO BID Qty: 120 0RF furosemide [Lasix] 40 mg tablet 40 mg PO DAILY Qty: 60 0RF diltiazem HCl [Cardizem CD] 120 mg capsule,extended release 24hr 120 mg PO DAILY Qty: 60 0RF atorvastatin [Lipitor] 40 mg tablet 40 mg PO QHS Qty: 60 0RF Continued dextroamphetamine-amphetamine 30 mg tablet 1 tab PO DAILY Patient Comments: in afternoon 1400 dextroamphetamine-amphetamine 30 mg capsule,extended release 24hr 1 cap PO DAILY Patient Comments: in the morning escitalopram oxalate 10 mg tablet 10 mg PO DAILY sildenafil 50 mg tablet 50 mg PO QHS PRN (Reason: erectile dysf) Patient Comments: has not used it at all yet Discontinued meloxicam 15 mg tablet 15 mg PO DAILY Referrals / Follow Up: Soila Yin MD [Primary Care Provider] - Within 1 Week Disposition Disposition (needs filled in before D/C Order can be placed): Home, Self Care Charges/Coding Visit Charges Inpatient E&M: 66393 Disch Hosp >30min
--- NOTE | 2024-07-20 15:34 | STRESSREP ---
Stress Test Report Exercise myocardial perfusion stress test. 69-year-old man with a history of chest pain Stress protocol: Resting EKG demonstrates normal sinus rhythm with a rate of 78 bpm resting blood pressure is 110/72 mmHg. The patient exercised according to the regular Jamel protocol for a total duration of 7 minutes attaining a maximum heart rate of 126 bpm which was 82% of maximum predicted heart rate; the maximum workload was 7 metabolic equivalents. At rest there were no ST or T wave changes noted to suggest ischemia and at peak exercise upsloping ST changes only were noted which did not meet the criteria for ischemia. No clinical angina was noted the test was terminated due to the target heart rate being achieved/fatigue. The peak blood pressure was 150/70 mmHg. Rate-pressure product was 18,900. Myocardial perfusion protocol. 14.8 mCi of technetium 99m sestamibi was injected at rest. The patient exercised according to regular Jamel protocol for total duration of 7 minutes and at peak exercise 45.0 mCi of technetium 99m sestamibi was injected stress images were obtained stress and rest images were reconstructed in comparing the short axis vertical long and horizontal long axis. Gated images were also obtained. Perfusion SPECT analysis: Review of the stress images demonstrate normal uptake of tracer noted in all areas of the myocardium. The resting images similarly demonstrate normal uptake of tracer noted in all areas of the myocardium. No areas of reversibility are noted to suggest ischemia no previous infarct was noted. Gated SPECT analysis: The gated ejection fraction is 49%. Conclusion: Normal exercise myocardial perfusion stress test at a moderate workload Preserved ejection fraction.
[2024-07-20 15:39] VITALS: BP 116/84; PULSE 82; RESP 16; TEMP 36.6; O2SAT 97
--- NOTE | 2024-07-20 15:52 | CASEMGMT ---
Patient has order for discharge. Patient discharging on Eliquis, patient does not have prescription coverage. RN CM called [facility] [employer] and 30 day free trial card applied. RN CM in to updated patient regarding cost and savings card. RN CM encourage patient to follow-up with PCP or oscillograph technician to discuss alternative medications, patient voided understanding. Patient had no further questions or concerns.
== END 2024-07-20 16:40 | disposition home or self-care (01) | DRG 308 ==
LOC: ED 16:52 → PCU 16:52
PROVIDERS: Admitting Provider Internal Medicine; Emergency Provider Emergency Medicine; PCP Family Medicine; Visit Provider Internal Medicine
DX: I48.91 Unspecified atrial fibrillation (principal); I50.31 Acute diastolic (congestive) heart failure; I24.89 Other forms of acute ischemic heart disease; J90 Pleural effusion, not elsewhere classified; N17.9 Acute kidney failure, unspecified; F32.A Depression, unspecified; Z68.39 Body mass index [BMI] 39.0-39.9, adult; F90.9 Attention-deficit hyperactivity disorder, unspecified type; E66.812 Obesity, class 2; Z79.899 Other long term (current) drug therapy
CPT/HCPCS: 36415; 71045; 71275; 78452; 80048; 80053; 80061; 83735; 83880; 84100; 84443; 84484; 85025; 85379; 85610; 85730; 93005; 93017; 93306; 97802; A9500; Q9957; Q9967; A4216; J1940; J2785